=== PATIENT | female | born 2000 | race Caucasian/White ===

== ENCOUNTER 2020-07-08 19:09 | Emergency (ER) | payer OTHER ==
[~2020-07-08] VITALS: Ht 149.9 cm; Wt 83.9 kg
[2020-07-08 19:14] VITALS: BP 128/78
--- NOTE | 2020-07-08 19:18 | NUR ---
PT AMBULATED TO BED 07 VIA STEADY GAIT.
[2020-07-08 19:31] VITALS: BP 128/78
--- NOTE | 2020-07-08 19:31 | NUR ---
19 Y/O F, CAME IN TO ER WITH COMPLAINTS OF ABDOMINAL PAIN. DESCRIBES PAIN SHARP AND STABBING AND RADIATES FROM LOWER AB TO LLQ. REPORTS PAIN HAS BEEN FOR 4 DAYS AND IS NOT ALLEVIATED WITH TYLENOL. HAVING NORMAL BOWEL MOVEMENTS, DENIES N/V/D. NO PAST MEDICAL HX AND NKA. DENIES ANY INJURY OR ACCIDENT. VSS. POSITIONED FOR COMFORT, SIDERAIL UPx1.
[2020-07-08] MEDS ORDERED: KETOROLAC 60 MG/2 ML VIAL IM ONE (19:35)
--- NOTE | 2020-07-08 20:28 | NUR ---
Patient discharged with v/s stable. Written and verbal after care instructions given and explained. Patient alert, oriented and verbalized understanding of instructions. Ambulatory with steady gait. All questions addressed prior to discharge. ID band removed. Patient advised to follow up with PMD. Rx of MOTRIN AND NORCO given. Patient educated on indication of medication including possible reaction and side effects. Opportunity to ask questions provided and answered. PT STABLE REPORTS WILL FOLLOWUP WITH PRIMARY PROVIDER.
== END 2020-07-08 20:28 | disposition home or self-care (01) ==
LOC: MED 19:09
DX: R10.30 Lower abdominal pain, unspecified (principal)
CPT/HCPCS: 81002; 81025; 96372; 99283; J1885

== ENCOUNTER 2020-07-10 11:13 | Emergency (ER) | payer OTHER ==
[~2020-07-10] VITALS: Ht 149.9 cm; Wt 83.9 kg
[2020-07-10 11:42] VITALS: BP 116/76
--- NOTE | 2020-07-10 12:00 | NUR ---
19 YEAR OLD FEMALE COMPLAINS OF LOWER ABDOMINAL PAIN X 6 DAYS. PT STATES SHE HAS BEEN HAVING DIARRHEA AFTER TAKING LAXATIVE. PT AOX4, BREATHING EVEN AND UNLABORED, SKIN WARM AND DRY. BED IN LOWEST POSITION, LOCKED, BED RAIL UPX1. PMH - DENIES ALLERGIES - NKA
[2020-07-10 13:09] VITALS: BP 116/76
--- NOTE | 2020-07-10 13:09 | NUR ---
Patient discharged with v/s stable. Written and verbal after care instructions given and explained. Patient alert, oriented and verbalized understanding of instructions. Ambulatory with steady gait. All questions addressed prior to discharge. ID band removed. Patient advised to follow up with PMD.
== END 2020-07-10 13:09 | disposition home or self-care (01) ==
LOC: MED 11:13
DX: N83.202 Unspecified ovarian cyst, left side (principal); R19.7 Diarrhea, unspecified
CPT/HCPCS: 76856; 99284; Q0092

== ENCOUNTER 2020-11-03 12:33 | Emergency (ER) | payer OTHER ==
[~2020-11-03] VITALS: Ht 149.9 cm; Wt 84.9 kg
[2020-11-03 12:41] VITALS: BP 115/70
--- NOTE | 2020-11-03 12:47 | NUR ---
PT AMB TO BED 12.
[2020-11-03] MEDS ORDERED: DICYCLOMINE HCL LIQUID 20 MG, ALUMINUM HYD/MAG/SIMETHICONE 30 ML, LIDOCAINE VISCOUS 2% ... PO ONE ×3 (13:15)
[2020-11-03] MEDS ORDERED: DICYCLOMINE HCL LIQUID 10 MG/5 ML UDC ONE (13:28)
[2020-11-03] MEDS ORDERED: ALUMINUM HYD/MAG/SIMETHICONE 30 ML UDC ONE (13:28)
[2020-11-03] MEDS ORDERED: LIDOCAINE VISCOUS 2% 20 ML UDC ONE (13:28)
[2020-11-03 14:55] VITALS: BP 115/70
--- NOTE | 2020-11-03 14:55 | NUR ---
Patient discharged with v/s stable. Written and verbal after care instructions given and explained. Patient alert, oriented and verbalized understanding of instructions. Ambulatory with steady gait. All questions addressed prior to discharge. ID band removed. Patient advised to follow up with PMD. Rx of Bentyl 20mg, Omeprazole 20mg and Zofran 4mg given. Patient educated on indication of medication including possible reaction and side effects. Opportunity to ask questions provided and answered.
== END 2020-11-03 14:55 | disposition home or self-care (01) ==
LOC: MED 12:33
DX: R10.13 Epigastric pain (principal)
CPT/HCPCS: 81002; 81025; 99283

== ENCOUNTER 2022-08-26 12:48 | Inpatient (IN) | payer OTHER ==
[~2022-08-26] VITALS: Ht 154.9 cm; Wt 81.6 kg
[2022-08-26 12:56] VITALS: BP 101/76
[2022-08-26] MEDS ORDERED: NACL 0.9% 1,000 ML IV SCH (13:25)
[2022-08-26] MEDS ORDERED: cefTRIAXone 1,000 MG VIAL ONE (13:35)
[2022-08-26] MEDS ORDERED: DOPPLER MC ONE (13:36)
[2022-08-26 13:52] LABS: BASOPHILS % (AUTO) 0.3 % (0.0-2.0); HEMATOCRIT 33.2 % (36-48); HEMOGLOBIN 11.6 g/dL (12.0-16.0); LYMPHOCYTES # (AUTO) 0.6 K/uL (2.5-16.5); LYMPHOCYTES % (AUTO) 5.3 % (20.5-51.1); MEAN CORPUSCULAR HEMOGLOBIN 30 pg (27-31); MEAN CORPUSCULAR HGB CONC 35 g/dL (33-37); MEAN CORPUSCULAR VOLUME 86.3 fL (80-94); MONOCYTES # (AUTO) 0.8 K/uL (0.8-1.0); MONOCYTES % (AUTO) 6.3 % (1.7-9.3); NEUTROPHILS # (AUTO) 10.8 K/uL (1.8-7.7); NEUTROPHILS % (AUTO) 88.1 % (42.2-75.2); PLATELET COUNT (AUTO) 196 K/uL (140-450); RED BLOOD CELL COUNT(AUTO) 3.84 MIL/uL (4.20-5.40); RED CELL DISTRIBUTION WIDTH 13.9 % (11.6-13.7); WHITE BLOOD COUNT (AUTO) 12.3 K/uL (4.8-10.8)
[2022-08-26 13:56] LABS: APPEARANCE,URINE CLEAR (CLEAR); BILIRUBIN,URINE 1+ (NEGATIVE); BLOOD, URINE NEGATIVE (NEGATIVE); COLOR,URINE YELLOW (YELLOW); LEUKOCYTE ESTERASE ,URINE NEGATIVE (NEGATIVE); NITRITE, URINE NEGATIVE (NEGATIVE); PH,URINE 8.5 (5.0-9.0); UGLUCOSE NEGATIVE (NEGATIVE)
[2022-08-26 14:13] LABS: ALBUMIN 2.9 g/dL (3.4-5.0); ANION GAP 13.6 (8-16); CREATININE 0.7 mg/dL (0.6-1.3); POTASSIUM 3.6 mmol/L (3.5-5.1); TOTAL BILIRUBIN 0.5 mg/dL (0.0-1.0)
[2022-08-26 14:22] LABS: RBC,URINE NONE SEEN /HPF (0-5); TRICHOMONAS,URINE None Seen /HPF (None Seen); WBC,URINE 0-5 /HPF (0-5); YEAST,URINE None Seen /HPF (None Seen)
--- NOTE | 2022-08-26 14:51 | NUR ---
21 Y/O FEMALE BIB SELF C/O PELVIC PRESSURE, URINARY BURNING AND HESITANCY X3DAYS, NAUSEA X4 WEEKS. PT IS 19 WEEKS G1, DENIES ANY LOW BACK PAIN, FLANK PAIN, HEADACHE, SUBJECTIVE FEVERS. NKA PMH: DENIES
[2022-08-26] MEDS ORDERED: NACL 0.9% 1,000 ML IV ONE ×2 (14:55→17:15)
[2022-08-26] MEDS ORDERED: ACETAMINOPHEN EXTRA STRENGTH 500 MG TAB PO ONE (15:00)
[2022-08-26] MEDS ORDERED: ONDANSETRON 4 MG/2 ML VIAL IVP PRN (17:00)
--- NOTE | 2022-08-26 17:19 | NUR ---
NOTED PT BP DROPPED TO 84/42, ERMD MADE AWARE, PT STATES SLIGHT DIZZINESS, DENIES ANY BLURRING OF VISION, HEADACHE, ABD PAIN
--- NOTE | 2022-08-26 18:15 | NUR ---
US AT BEDSIDE
[2022-08-26] MEDS: NACL 0.9% 1,000 ML IV SCH (18:19)
--- NOTE | 2022-08-26 19:19 | NUR ---
Pt report given to GABE GRIMES. Transfer of care at this time.
--- NOTE | 2022-08-26 20:00 | NUR ---
pt is alert and oriented x 4. follow command. pt voided. 200. room air ambulatory.
[2022-08-27] MEDS: NACL 0.9% 1,000 ML IV SCH ×3 (01:00→15:25)
--- NOTE | 2022-08-27 07:20 | NUR ---
Received report from CORNELIO Ji. Assumed care at this time.
[2022-08-27 07:57] LABS: BASOPHILS % (AUTO) 0.3 % (0.0-2.0); EOSINOPHILS # (AUTO) 0.1 K/uL (0-0.4); EOSINOPHILS % (AUTO) 1.1 % (0.0-4.0); HEMATOCRIT 30.4 % (36-48); HEMOGLOBIN 10.8 g/dL (12.0-16.0); LYMPHOCYTES # (AUTO) 1.5 K/uL (2.5-16.5); LYMPHOCYTES % (AUTO) 16.8 % (20.5-51.1); MEAN CORPUSCULAR HEMOGLOBIN 31 pg (27-31); MEAN CORPUSCULAR HGB CONC 36 g/dL (33-37); MEAN CORPUSCULAR VOLUME 87.5 fL (80-94); MONOCYTES # (AUTO) 0.6 K/uL (0.8-1.0); MONOCYTES % (AUTO) 6.5 % (1.7-9.3); NEUTROPHILS # (AUTO) 6.5 K/uL (1.8-7.7); NEUTROPHILS % (AUTO) 75.3 % (42.2-75.2); PLATELET COUNT (AUTO) 186 K/uL (140-450); RED BLOOD CELL COUNT(AUTO) 3.48 MIL/uL (4.20-5.40); RED CELL DISTRIBUTION WIDTH 13.6 % (11.6-13.7); WHITE BLOOD COUNT (AUTO) 8.6 K/uL (4.8-10.8)
[2022-08-27 08:08] LABS: ALBUMIN 2.3 g/dL (3.4-5.0); ANION GAP 9.4 (8-16); CARBON DIOXIDE 25.2 mmol/L (21-32); CREATININE 0.5 mg/dL (0.6-1.3); POTASSIUM 3.6 mmol/L (3.5-5.1); TOTAL BILIRUBIN 0.3 mg/dL (0.0-1.0)
[2022-08-27] MEDS ORDERED: DOPPLER MC ONE (09:45)
--- NOTE | 2022-08-27 12:42 | NUR ---
Patient will be admitted to care of Dr. Walker. Admited to Med/Surg. Will go to room 212. Belongings list completed. Report to CORNELIO Pat.
[2022-08-27 17:29] VITALS: BP 115/62
[2022-08-28] MEDS: NACL 0.9% 1,000 ML IV SCH ×2 (00:50→09:16)
--- NOTE | 2022-08-28 06:38 | NUR ---
PATIENT HAS BEEN SCREENED AND CATEGORIZED LOW NUTRITION RISK. PATIENT WILL BE SEEN WITHIN 7 DAYS OF ADMISSION. 09/02/[address]
[2022-08-28 10:49] LABS: ANION GAP 12.1 (8-16); CARBON DIOXIDE 24.4 mmol/L (21-32); CREATININE 0.5 mg/dL (0.6-1.3); POTASSIUM 3.5 mmol/L (3.5-5.1)
[2022-08-28 11:22] LABS: BASOPHILS % (AUTO) 0.3 % (0.0-2.0); EOSINOPHILS # (AUTO) 0.1 K/uL (0-0.4); HEMATOCRIT 30.6 % (36-48); HEMOGLOBIN 10.7 g/dL (12.0-16.0); LYMPHOCYTES # (AUTO) 1.5 K/uL (2.5-16.5); LYMPHOCYTES % (AUTO) 19.9 % (20.5-51.1); MEAN CORPUSCULAR HEMOGLOBIN 31 pg (27-31); MEAN CORPUSCULAR HGB CONC 35 g/dL (33-37); MEAN CORPUSCULAR VOLUME 87.3 fL (80-94); MONOCYTES # (AUTO) 0.3 K/uL (0.8-1.0); MONOCYTES % (AUTO) 4.5 % (1.7-9.3); NEUTROPHILS # (AUTO) 5.4 K/uL (1.8-7.7); NEUTROPHILS % (AUTO) 74.3 % (42.2-75.2); PLATELET COUNT (AUTO) 198 K/uL (140-450); RED BLOOD CELL COUNT(AUTO) 3.51 MIL/uL (4.20-5.40); RED CELL DISTRIBUTION WIDTH 13.9 % (11.6-13.7); WHITE BLOOD COUNT (AUTO) 7.3 K/uL (4.8-10.8)
[2022-08-28] MEDS ORDERED: CEFP200T20 PO (12:57)
== END 2022-08-28 12:55 | disposition home or self-care (01) | DRG 566 ==
LOC: MED 12:48 → MTU 18:24 → MFCC 08-27 12:11
PROVIDERS: ADMIT Hospitalist; ATTEND Hospitalist
DX: O23.02 Infections of kidney in pregnancy, second trimester (principal); O98.812 Other maternal infectious and parasitic diseases complicating pregnancy, second trimester; Z20.822 Contact with and (suspected) exposure to COVID-19; N12 Tubulo-interstitial nephritis, not specified as acute or chronic; Z3A.19 19 weeks gestation of pregnancy
CPT/HCPCS: 36415; 76770; 76815; 80048; 80053; 81001; 83605; 83735; 85025; 87040; 87086; 96361; 96365; 99285; J0696; J2405; J7030; J7060; Q0092

== ENCOUNTER 2022-09-11 15:20 | Observation (INO) | payer OTHER ==
[~2022-09-11] VITALS: Ht 149.9 cm; Wt 95.3 kg
[~2022-09-11 15:20] MED LIST: CEFP200T20 PO
[2022-09-11] MEDS ORDERED: METO-485 PO (15:49)
[2022-09-11 16:18] LABS: BASOPHILS # (AUTO) 0.1 K/uL (0.00-0.22); BASOPHILS % (AUTO) 0.7 % (0.0-2.0); EOSINOPHILS # (AUTO) 0.1 K/uL (0-0.4); EOSINOPHILS % (AUTO) 0.8 % (0.0-4.0); HEMATOCRIT 34.5 % (36-48); LYMPHOCYTES # (AUTO) 1.7 K/uL (2.5-16.5); LYMPHOCYTES % (AUTO) 15.8 % (20.5-51.1); MEAN CORPUSCULAR HEMOGLOBIN 30 pg (27-31); MEAN CORPUSCULAR HGB CONC 35 g/dL (33-37); MEAN CORPUSCULAR VOLUME 87.1 fL (80-94); MONOCYTES # (AUTO) 0.6 K/uL (0.8-1.0); MONOCYTES % (AUTO) 5.7 % (1.7-9.3); NEUTROPHILS # (AUTO) 8.3 K/uL (1.8-7.7); PLATELET COUNT (AUTO) 270 K/uL (140-450); RED BLOOD CELL COUNT(AUTO) 3.96 MIL/uL (4.20-5.40); WHITE BLOOD COUNT (AUTO) 10.8 K/uL (4.8-10.8)
[2022-09-11 16:38] LABS: ALBUMIN 2.9 g/dL (3.4-5.0); ANION GAP 11.9 (8-16); CARBON DIOXIDE 28.9 mmol/L (21-32); CREATININE 0.5 mg/dL (0.6-1.3); POTASSIUM 3.8 mmol/L (3.5-5.1); TOTAL BILIRUBIN 0.3 mg/dL (0.0-1.0)
[2022-09-11 17:57] VITALS: BP 111/59
== END 2022-09-11 20:50 | disposition home or self-care (01) ==
LOC: OBSVTOIN 15:20 → MLD 15:20 → INTOOBSV 15:20
PROVIDERS: ADMIT Obstetrics & Gynecology; ATTEND Obstetrics & Gynecology
DX: O26.892 Other specified pregnancy related conditions, second trimester (principal); Z20.822 Contact with and (suspected) exposure to COVID-19; R10.9 Unspecified abdominal pain; Z3A.21 21 weeks gestation of pregnancy; V89.2XXA Person injured in unspecified motor-vehicle accident, traffic, initial encounter; Y93.89 Activity, other specified; Y92.89 Other specified places as the place of occurrence of the external cause
CPT/HCPCS: 36415; 76805; 80053; 85025; 85384; 87426; G0378; Q0092; 59025; 81000

== ENCOUNTER 2022-09-14 21:50 | Observation (INO) | payer OTHER ==
[~2022-09-14] VITALS: Ht 149.9 cm; Wt 86.2 kg
[~2022-09-14 21:50] MED LIST changes: +METO-485 PO
[2022-09-14] MEDS ORDERED: LOPERAMIDE 2 MG CAP PO PRN (22:30)
[2022-09-14] MEDS ORDERED: LACTATED RINGERS 1,000 ML IV SCH (22:30)
[2022-09-14 22:32] VITALS: BP 116/62
[2022-09-14] MEDS: ONDANSETRON 4 MG/2 ML VIAL IVP PRN (23:07)
[2022-09-14 23:20] LABS: ALBUMIN 2.8 g/dL (3.4-5.0); CREATININE 0.5 mg/dL (0.6-1.3); TOTAL BILIRUBIN 0.4 mg/dL (0.0-1.0)
[2022-09-14 23:26] LABS: ANION GAP 6.3 (8-16); CARBON DIOXIDE 29.4 mmol/L (21-32); POTASSIUM 3.7 mmol/L (3.5-5.1)
[2022-09-15] MEDS: ONDANSETRON 4 MG/2 ML VIAL IVP PRN (05:00)
== END 2022-09-15 08:19 | disposition home or self-care (01) ==
LOC: MLD 21:50
PROVIDERS: ADMIT Obstetrics & Gynecology; ATTEND Obstetrics & Gynecology
DX: O26.892 Other specified pregnancy related conditions, second trimester (principal); R10.9 Unspecified abdominal pain; Z3A.22 22 weeks gestation of pregnancy
CPT/HCPCS: 36415; 80053; 96361; 96374; 96376; G0378; J2405; J7120

== ENCOUNTER 2022-09-27 15:50 | Inpatient (IN) | payer OTHER ==
[~2022-09-27] VITALS: Ht 149.9 cm; Wt 88.0 kg
[2022-09-27] MEDS ORDERED: PNV91TAB8 PO (16:42)
[2022-09-27 17:27] VITALS: BP 113/59
[2022-09-27] MEDS ORDERED: INDOMETHACIN 25 MG CAP PO SCH (19:30)
[2022-09-27] MEDS: BETAMETH ACET/BETAMETH NA PH 30 MG/5 ML VIAL IM SCH (19:52)
[2022-09-27] MEDS: LACTATED RINGERS 1,000 ML IV SCH (19:57)
[2022-09-27] MEDS: ONDANSETRON 4 MG/2 ML VIAL IVP PRN (21:20)
[2022-09-27] MEDS ORDERED: NIFEdipine 10 MG CAPLF PO ONE (21:30)
[2022-09-28] MEDS ORDERED: NIFEdipine 10 MG CAPLF PO SCH
[2022-09-28] MEDS: LACTATED RINGERS 1,000 ML IV SCH ×3 (03:54→20:00)
[2022-09-28] MEDS: ONDANSETRON 4 MG/2 ML VIAL IVP PRN ×2 (04:03→20:00)
[2022-09-28] MEDS ORDERED: INDOMETHACIN 25 MG CAP PO SCH ×2 (08:15)
--- NOTE | 2022-09-28 09:11 | NUR ---
PATIENT HAS BEEN SCREENED AND CATEGORIZED LOW NUTRITION RISK. PATIENT WILL BE SEEN WITHIN 7 DAYS OF ADMISSION. 10/04/22 REVIEWED BY MARGARET RESENDEZ RD
[2022-09-28] MEDS: INDOMETHACIN 25 MG CAP PO SCH ×3 (13:40→21:30)
[2022-09-28] MEDS: BETAMETH ACET/BETAMETH NA PH 30 MG/5 ML VIAL IM SCH (19:53)
[2022-09-29] MEDS: INDOMETHACIN 25 MG CAP PO SCH ×6 (01:34→22:00)
[2022-09-29] MEDS: LACTATED RINGERS 1,000 ML IV SCH ×3 (04:25→20:12)
[2022-09-29] MEDS: ONDANSETRON 4 MG/2 ML VIAL IVP PRN ×2 (12:51→18:18)
[2022-09-29] MEDS: NIFEdipine 10 MG CAPLF PO SCH (18:22)
[2022-09-29] MEDS ORDERED: INDOMETHACIN 25 MG CAP PO SCH (20:00)
[2022-09-30] MEDS: INDOMETHACIN 25 MG CAP PO SCH ×3 (02:00→10:25)
[2022-09-30] MEDS ORDERED: MORPHINE SULFATE 2 MG/ML SYR IVP ONE (02:25)
[2022-09-30] MEDS ORDERED: MORPHINE SULFATE 4 MG/ML SYR ONE (02:26)
[2022-09-30] MEDS: LACTATED RINGERS 1,000 ML IV SCH (03:48)
[2022-09-30] MEDS: NIFEdipine 10 MG CAPLF PO SCH ×3 (06:10→11:57)
[2022-09-30] MEDS: ONDANSETRON 4 MG/2 ML VIAL IVP PRN (11:55)
[2022-09-30] MEDS ORDERED: NIFEdipine 10 MG CAPLF PO SCH ×2 (18:00)
== END 2022-09-30 13:15 | disposition home or self-care (01) | DRG 566 ==
LOC: MLD 15:50 → OBSVTOIN 19:27 → MLD 20:51 → MFCC 09-28 09:38
PROVIDERS: ADMIT Obstetrics & Gynecology; ATTEND Obstetrics & Gynecology
DX: O34.32 Maternal care for cervical incompetence, second trimester (principal); O60.02 Preterm labor without delivery, second trimester; O26.872 Cervical shortening, second trimester; Z20.822 Contact with and (suspected) exposure to COVID-19; Z3A.24 24 weeks gestation of pregnancy
CPT/HCPCS: 76805; 76817; J0702; J2270; J2405; Q0092

== ENCOUNTER 2022-11-06 12:45 | Inpatient (IN) | payer OTHER ==
[~2022-11-06] VITALS: Ht 149.9 cm; Wt 90.7 kg
[~2022-11-06 12:45] MED LIST changes: -CEFP200T20 PO; -METO-485 PO; +PNV91TAB8 PO
[2022-11-06] MEDS ORDERED: procardia (13:28)
[2022-11-06] MEDS ORDERED: BETAMETH ACET/BETAMETH NA PH 30 MG/5 ML VIAL IM SCH (13:30)
[2022-11-06 14:56] LABS: APPEARANCE,URINE CLEAR (CLEAR); BILIRUBIN,URINE NEGATIVE (NEGATIVE); BLOOD, URINE NEGATIVE (NEGATIVE); COLOR,URINE YELLOW (YELLOW); LEUKOCYTE ESTERASE ,URINE NEGATIVE (NEGATIVE); NITRITE, URINE NEGATIVE (NEGATIVE); UGLUCOSE NEGATIVE (NEGATIVE)
[2022-11-06 15:09] LABS: BASOPHILS % (AUTO) 0.2 % (0.0-2.0); EOSINOPHILS % (AUTO) 0.3 % (0.0-4.0); HEMATOCRIT 33.2 % (36-48); HEMOGLOBIN 11.3 g/dL (12.0-16.0); MEAN CORPUSCULAR HEMOGLOBIN 30 pg (27-31); MEAN CORPUSCULAR HGB CONC 34 g/dL (33-37); MEAN CORPUSCULAR VOLUME 87.5 fL (80-94); MONOCYTES # (AUTO) 0.8 K/uL (0.8-1.0); MONOCYTES % (AUTO) 5.6 % (1.7-9.3); NEUTROPHILS # (AUTO) 12.3 K/uL (1.8-7.7); NEUTROPHILS % (AUTO) 86.9 % (42.2-75.2); PLATELET COUNT (AUTO) 222 K/uL (140-450); RED CELL DISTRIBUTION WIDTH 12.9 % (11.6-13.7); WHITE BLOOD COUNT (AUTO) 14.1 K/uL (4.8-10.8)
[2022-11-06 15:25] LABS: ALBUMIN 3.2 g/dL (3.4-5.0); ANION GAP 13.3 (8-16); CARBON DIOXIDE 26.9 mmol/L (21-32); CREATININE 0.5 mg/dL (0.6-1.3); POTASSIUM 4.2 mmol/L (3.5-5.1); TOTAL BILIRUBIN 0.3 mg/dL (0.0-1.0)
--- NOTE | 2022-11-06 17:00 | NUR ---
PATIENT HAS BEEN SCREENED AND CATEGORIZED LOW NUTRITION RISK. PATIENT WILL BE SEEN WITHIN 7 DAYS OF ADMISSION. 11/13/22 REVIEWED BY MARGARET RESENDEZ RD
[2022-11-06] MEDS ORDERED: MAG SULF 2000 MG/WATER PREMIX 50 ML IV ONE (17:17)
[2022-11-06] MEDS ORDERED: MAG SULF 20 GM/H2O PREMIX DRIP 500 ML IV SCH (17:30)
[2022-11-06] MEDS ORDERED: MAG SULF 2000 MG/WATER PREMIX 100 ML IV ONE (17:30)
[2022-11-06] MEDS ORDERED: MAG SULF 2000 MG/WATER PREMIX 100 ML IV SCH (17:40)
[2022-11-06 17:57] VITALS: BP 80/53
[2022-11-06] MEDS: MAG SULF 20 GM/H2O PREMIX DRIP 500 ML IV PRN (18:23)
[2022-11-07] MEDS: LACTATED RINGERS 1,000 ML IV SCH ×3 (01:54→19:03)
[2022-11-07] MEDS ORDERED: ACETAMINOPHEN 325 MG TAB PO PRN (01:55)
[2022-11-07] MEDS: MAG SULF 20 GM/H2O PREMIX DRIP 500 ML IV PRN (09:50)
[2022-11-07] MEDS ORDERED: BETAMETH ACET/BETAMETH NA PH 30 MG/5 ML VIAL IM ONE ×2 (13:37→14:00)
[2022-11-07] MEDS ORDERED: NIFEdipine 10 MG CAPLF PO SCH (20:35)
[2022-11-07] MEDS ORDERED: NIFEdipine 10 MG CAPLF ONE (20:54)
== END 2022-11-07 22:15 | disposition home or self-care (01) | DRG 833 ==
LOC: MFCC 12:45 → OBSVTOIN 21:51
PROVIDERS: ADMIT Obstetrics & Gynecology; ATTEND Obstetrics & Gynecology
DX: O60.03 Preterm labor without delivery, third trimester (principal); Z3A.29 29 weeks gestation of pregnancy; Z20.822 Contact with and (suspected) exposure to COVID-19
CPT/HCPCS: 36415; 76805; 76817; 80053; 81003; 83735; 85025; 86592; 86886; 86900; 86901; J0702; J3475; Q0092

== ENCOUNTER 2023-01-10 00:01 | Inpatient (IN) | payer OTHER ==
[~2023-01-10] VITALS: Ht 149.9 cm; Wt 98.4 kg
[~2023-01-10 00:01] MED LIST changes: +procardia
[2023-01-10] MEDS ORDERED: ONDANSETRON 4 MG/2 ML VIAL IVP PRN (00:40)
[2023-01-10] MEDS ORDERED: MORPHINE SULFATE 5 MG/ML VIAL IVP PRN (00:40)
[2023-01-10] MEDS ORDERED: OXYTOCIN 10 UNITS/ML VIAL IM SCH (00:40)
[2023-01-10] MEDS ORDERED: CARBOPROST 250 MCG/ML AMP IM PRN (00:40)
[2023-01-10] MEDS ORDERED: OXYTOCIN 20 UNITS in LACTATED RINGERS 1,000 ML IV SCH (00:40)
[2023-01-10] MEDS ORDERED: METHYLERGONOVINE 0.2 MG/ML AMP IM PRN (00:40)
[2023-01-10 01:28] LABS: BASOPHILS % (AUTO) 0.3 % (0.0-2.0); EOSINOPHILS # (AUTO) 0.1 K/uL (0-0.4); EOSINOPHILS % (AUTO) 0.9 % (0.0-4.0); HEMATOCRIT 32.7 % (36-48); HEMOGLOBIN 11.1 g/dL (12.0-16.0); LYMPHOCYTES # (AUTO) 1.7 K/uL (2.5-16.5); MEAN CORPUSCULAR HEMOGLOBIN 28 pg (27-31); MEAN CORPUSCULAR HGB CONC 34 g/dL (33-37); MEAN CORPUSCULAR VOLUME 83.9 fL (80-94); MONOCYTES # (AUTO) 0.8 K/uL (0.8-1.0); NEUTROPHILS # (AUTO) 8.2 K/uL (1.8-7.7); NEUTROPHILS % (AUTO) 75.8 % (42.2-75.2); PLATELET COUNT (AUTO) 264 K/uL (140-450); RED CELL DISTRIBUTION WIDTH 13.8 % (11.6-13.7); WHITE BLOOD COUNT (AUTO) 10.8 K/uL (4.8-10.8)
[2023-01-10 01:32] LABS: APPEARANCE,URINE CLEAR (CLEAR); BILIRUBIN,URINE NEGATIVE (NEGATIVE); BLOOD, URINE NEGATIVE (NEGATIVE); COLOR,URINE YELLOW (YELLOW); LEUKOCYTE ESTERASE ,URINE NEGATIVE (NEGATIVE); NITRITE, URINE NEGATIVE (NEGATIVE); UGLUCOSE NEGATIVE (NEGATIVE)
[2023-01-10 02:15] LABS: PROTHROMBIN TIME 9.3 secs (10.8-13.4)
[2023-01-10 02:23] LABS: POTASSIUM 4.5 mmol/L (3.5-5.1)
[2023-01-10 02:24] LABS: ALBUMIN 2.7 g/dL (3.4-5.0); ANION GAP 11.3 (8-16); CARBON DIOXIDE 26.2 mmol/L (21-32); CREATININE 0.7 mg/dL (0.6-1.3); TOTAL BILIRUBIN 0.3 mg/dL (0.0-1.0)
[2023-01-10] MEDS: LACTATED RINGERS 1,000 ML IV SCH ×3 (02:56→16:33)
[2023-01-10] MEDS: MISOPROSTOL 25 MCG TAB VG PRN ×3 (06:26→21:01)
--- NOTE | 2023-01-10 09:12 | NUR ---
PATIENT HAS BEEN SCREENED AND CATEGORIZED LOW NUTRITION RISK. PATIENT WILL BE SEEN WITHIN 7 DAYS OF ADMISSION. 01/17/23 REVIEWED BY MARGARET RESENDEZ RD
[2023-01-11] MEDS: LACTATED RINGERS 1,000 ML IV SCH ×6 (01:10→20:56)
[2023-01-11 07:08] LABS: HEPATITIS B SURFACE ANTIGEN Negative (Negative)
[2023-01-11] MEDS ORDERED: ROPIVACAINE 0.2%/NS PREMIX 200 ML EPI ONE (12:49)
[2023-01-11] MEDS ORDERED: OXYTOCIN 20 UNITS in LACTATED RINGERS 1,000 ML IV SCH (14:25)
[2023-01-11] MEDS ORDERED: OXYTOCIN 20 UNITS/LR PREMIX 1,000 ML IV ONE (14:26)
[2023-01-12] MEDS ORDERED: ROPIVACAINE 0.2%/NS PREMIX 200 ML EPI ONE ×2 (03:42→13:31)
[2023-01-12] MEDS: LACTATED RINGERS 1,000 ML IV SCH ×2 (04:58→12:46)
[2023-01-12] MEDS ORDERED: MORPHINE SULFATE 10 MG/ML VIAL ONE ×2 (07:36→13:38)
[2023-01-12] MEDS ORDERED: OXYTOCIN 20 UNITS/LR PREMIX 1,000 ML IV ONE (16:08)
[2023-01-12] MEDS ORDERED: METHYLERGONOVINE 0.2 MG TAB PO PRN (20:00)
[2023-01-12] MEDS ORDERED: BENZOCAINE/MENTHOL 20%-0.5% 60 GM CAN TP PRN (20:00)
[2023-01-12] MEDS ORDERED: METHYLERGONOVINE 0.2 MG/ML AMP IM PRN (20:00)
[2023-01-12] MEDS ORDERED: OXYTOCIN 10 UNITS/ML VIAL IM PRN (20:00)
[2023-01-12] MEDS ORDERED: MEASLES, MUMPS, AND RUBELLA 1 VIAL SQVAC ONE (20:00)
[2023-01-12] MEDS: IBUPROFEN 800 MG TAB PO PRN (23:21)
[2023-01-13 06:10] LABS: HEMATOCRIT 25.8 % (36-48); HEMOGLOBIN 8.8 g/dL (12.0-16.0)
[2023-01-13] MEDS: IBUPROFEN 800 MG TAB PO PRN (14:19)
[2023-01-14] MEDS: IBUPROFEN 800 MG TAB PO PRN (09:26)
== END 2023-01-14 18:06 | disposition home or self-care (01) | DRG 807 ==
LOC: MLD 00:01 → MFCC 01-12 19:58
PROVIDERS: ADMIT Obstetrics & Gynecology; ATTEND Obstetrics & Gynecology
PROC: 10D07Z6 Extraction of Products of Conception, Vacuum, Via Natural or Artificial Opening (ICD-10-PCS; principal; 2023-01-12)
PROC: 0KQM0ZZ Repair Perineum Muscle, Open Approach (ICD-10-PCS; 2023-01-12)
PROC: 3E0R3BZ Introduction of Anesthetic Agent into Spinal Canal, Percutaneous Approach (ICD-10-PCS; 2023-01-12)
PROC: 00HU33Z Insertion of Infusion Device into Spinal Canal, Percutaneous Approach (ICD-10-PCS; 2023-01-12)
DX: O70.1 Second degree perineal laceration during delivery (principal); Z37.0 Single live birth; Z20.822 Contact with and (suspected) exposure to COVID-19; Z3A.39 39 weeks gestation of pregnancy
CPT/HCPCS: 36415; 51702; 59200; 76805; 80053; 81003; 85018; 85025; 85610; 85730; 86592; 86762; 86886; 86900; 86901; 87340; J2270; J2405; J2590; J2795; Q0092

== ENCOUNTER 2023-03-19 18:25 | Inpatient (IN) | payer OTHER ==
[~2023-03-19] VITALS: Ht 149.9 cm; Wt 94.8 kg
[2023-03-19 00:55] VITALS: BP 99/58; PULSE 63; RESP 18; TEMP 97.6; O2SAT 96
[~2023-03-19 18:25] MED LIST changes: -procardia
[2023-03-19 18:54] VITALS: BP 116/74; PULSE 84; RESP 20; TEMP 98
--- NOTE | 2023-03-19 19:30 | NUR ---
URINE SAMPLE COLLECTED, NEGATIVE PREG TEST. SAMPLE TAKEN TO LAB FOR ANALYSIS.
[2023-03-19 19:42] LABS: APPEARANCE,URINE CLEAR (CLEAR); BILIRUBIN,URINE 2+ (NEGATIVE); BLOOD, URINE NEGATIVE (NEGATIVE); COLOR,URINE ORANGE (YELLOW); LEUKOCYTE ESTERASE ,URINE NEGATIVE (NEGATIVE); NITRITE, URINE NEGATIVE (NEGATIVE); UGLUCOSE NEGATIVE (NEGATIVE)
--- NOTE | 2023-03-19 20:18 | NUR ---
PT TO BED #1
[2023-03-19] MEDS ORDERED: KETOROLAC 30 MG/ML VIAL IVP ONE (20:30)
[2023-03-19] MEDS ORDERED: NACL 0.9% 1,000 ML IV ONE ×2 (20:30→21:50)
[2023-03-19 20:32] LABS: BASOPHILS % (AUTO) 0.3 % (0.0-2.0); EOSINOPHILS % (AUTO) 0.4 % (0.0-4.0); HEMATOCRIT 36.4 % (36-48); HEMOGLOBIN 12.3 g/dL (12.0-16.0); LYMPHOCYTES # (AUTO) 1.1 K/uL (2.5-16.5); LYMPHOCYTES % (AUTO) 10.6 % (20.5-51.1); MEAN CORPUSCULAR HEMOGLOBIN 27 pg (27-31); MEAN CORPUSCULAR HGB CONC 34 g/dL (33-37); MEAN CORPUSCULAR VOLUME 79.9 fL (80-94); MONOCYTES # (AUTO) 0.6 K/uL (0.8-1.0); MONOCYTES % (AUTO) 5.9 % (1.7-9.3); NEUTROPHILS # (AUTO) 8.8 K/uL (1.8-7.7); NEUTROPHILS % (AUTO) 82.8 % (42.2-75.2); PLATELET COUNT (AUTO) 299 K/uL (140-450); RED BLOOD CELL COUNT(AUTO) 4.55 MIL/uL (4.20-5.40); WHITE BLOOD COUNT (AUTO) 10.6 K/uL (4.8-10.8)
[2023-03-19] MEDS ORDERED: ONDANSETRON 4 MG/2 ML VIAL IVP ONE (20:40)
[2023-03-19 20:57] LABS: ANION GAP 14.1 (8-16); CARBON DIOXIDE 28.6 mmol/L (21-32); CREATININE 0.9 mg/dL (0.6-1.3); POTASSIUM 3.7 mmol/L (3.5-5.1)
[2023-03-19 22:15] LABS: CHOL/HDL RATIO 1.9 (1-4.5)
[2023-03-20] MEDS ORDERED: ZOLPIDEM 5 MG TAB PO PRN
[2023-03-20] MEDS ORDERED: guaiFENesin DM 200/20 MG-10 ML 10 ML UDC PO PRN
[2023-03-20] MEDS ORDERED: DOCUSATE SODIUM 100 MG GELCAP PO PRN
[2023-03-20 00:29] LABS: PROTHROMBIN TIME 10.4 secs (10.8-13.4)
[2023-03-20 00:31] LABS: BARBITURATE, URINE NEGATIVE ng/ml (NEG <=200)
[2023-03-20 00:32] LABS: BENZODIAZEPINE, URINE NEGATIVE ng/mL (NEG <=200); CANNABINOID, URINE NEGATIVE ng/mL (NEG <=50); COCAINE, URINE NEGATIVE ng/mL (NEG <=300); OPIATE, URINE NEGATIVE ng/mL (NEG <=2000); PHENCYCLIDINE SCREEN,URINE NEGATIVE ng/mL (NEG <=25)
--- NOTE | 2023-03-20 00:45 | NUR ---
Patient will be admitted to care of HELEN FARMER. Admited to TELEMETRY. Will go to room 105A. Belongings list completed. Report to BIANKA GRIMES.
[2023-03-20 00:55] VITALS: PULSE 94
--- NOTE | 2023-03-20 01:00 | NUR ---
RECEIVED REPORT FROM ER NURSE CÉSAR FOR CONTINUITY OF CARE. PATIENT IS A&O X4. PATIENT IS ON ROOM AIR BREATHING IS NORMAL WITH SYMMETRICAL RISE AND FALL OF CHEST. IV IS A 20G RAC, RUNNING NS 150 ML. PATIENT WAS ABLE TO AMBULATE TO BED FROM [facility]. PATIENT IS SITTING IN BED WITH AT BEDSIDE. WILL CONTINUE TO OBSERVE PATIENT.
[2023-03-20] MEDS: NACL 0.9% 1,000 ML IV SCH ×4 (01:21→22:38)
[2023-03-20] MEDS: HYDROcodone/APAP 7.5/325 MG 1 TAB PO PRN ×2 (02:41→15:02)
[2023-03-20 04:00] VITALS: BP 98/57; PULSE 70; PULSE 72; RESP 18; TEMP 97.6; O2SAT 98
[2023-03-20] MEDS ORDERED: MORPHINE SULFATE 2 MG/ML SYR IVP SCH (04:00)
[2023-03-20] MEDS ORDERED: MORPHINE SULFATE 2 MG/ML SYR ONE (04:02)
--- NOTE | 2023-03-20 04:27 | NUR ---
PATIENT COMPLAINED OF PAIN. CHECKED VITALS AND CHART; MEDICATED PATIENT WITH NORCO AT 0241. PATIENT'S PAIN CONTINUED TO GET WORSE. CORNELIO GUSTAFSON GAVE PATIENT ICE PACKS AND MESSAGED DR. CERVANTES AT 0312. ICE PACKS WERE NOT EFFECTIVE. DR. CERVANTES CALLED AT 0330 AND ASKED ABOUT PATIENT'S CONDITION. INFORMED MD THAT PATIENT WAS CRYING IN PAIN STATING 10/10 AND THAT THE NORCO WAS NOT EFFECTIVE. DR. CERVANTES ASKED WHEN THE NORCO WAS GIVEN, I TOLD THE TIME, HE SAID TO GIVE IT ANOTHER 30 MINUTES, THEN WE'LL SEE ABOUT MORPHINE. CALLED BACK AT 0350 AND REQUESTED MORPHINE FOR PATIENT. AUTHORIZED ONE TIME DOSE OF 2MG MORPHINE AND KUB X-RAY STAT. CHARGE NURSE JOSE PUT ORDERS IN; I PULLED MEDICATION AND ADMINISTERED TO PATIENT AT 0406. DR. CERVANTES MESSAGED ASKING ABOUT KUB AND HOW PATIENT IS, INFORMED HIM THAT KUB WAS JUST DONE AND PATIENT STATES MORPHINE HELPED A LITTLE BIT, BUT PAIN WAS STILL 8/10. MESSAGED TO LET HIM KNOW WHEN KUB RESULTS WERE IN. PATIENT IS LYING SUPINE ON HER RIGHT SIDE; WILL CONTINUE TO OBSERVE PATIENT.
[2023-03-20 07:01] LABS: ALBUMIN 3.4 g/dL (3.4-5.0); ANION GAP 12.8 (8-16); CARBON DIOXIDE 27.7 mmol/L (21-32); CREATININE 0.7 mg/dL (0.6-1.3); POTASSIUM 4.5 mmol/L (3.5-5.1); TOTAL BILIRUBIN 2.6 mg/dL (0.0-1.0)
[2023-03-20 07:05] LABS: BASOPHILS % (AUTO) 0.2 % (0.0-2.0); EOSINOPHILS % (AUTO) 0.1 % (0.0-4.0); HEMATOCRIT 32.7 % (36-48); HEMOGLOBIN 11.1 g/dL (12.0-16.0); LYMPHOCYTES # (AUTO) 0.7 K/uL (2.5-16.5); LYMPHOCYTES % (AUTO) 5.4 % (20.5-51.1); MEAN CORPUSCULAR HEMOGLOBIN 27 pg (27-31); MEAN CORPUSCULAR HGB CONC 34 g/dL (33-37); MEAN CORPUSCULAR VOLUME 78.2 fL (80-94); MONOCYTES # (AUTO) 0.6 K/uL (0.8-1.0); MONOCYTES % (AUTO) 5.1 % (1.7-9.3); NEUTROPHILS # (AUTO) 10.7 K/uL (1.8-7.7); NEUTROPHILS % (AUTO) 89.2 % (42.2-75.2); PLATELET COUNT (AUTO) 268 K/uL (140-450); RED BLOOD CELL COUNT(AUTO) 4.18 MIL/uL (4.20-5.40); RED CELL DISTRIBUTION WIDTH 14.4 % (11.6-13.7)
--- NOTE | 2023-03-20 07:25 | NUR ---
ENDORSE TO DAY SHIFT NURSE ADZE FOR CONTINUITY OF CARE. PATIENT IS STABLE.
[2023-03-20] MEDS: ONDANSETRON 4 MG/2 ML VIAL IM/IVP PRN ×3 (07:49→19:50)
[2023-03-20] MEDS: KETOROLAC 30 MG/ML VIAL IVP PRN ×2 (07:50→19:49)
[2023-03-20 08:00] VITALS: BP 109/62; PULSE 72; PULSE 95; RESP 18; TEMP 98; O2SAT 99
--- NOTE | 2023-03-20 08:00 | NUR ---
Received patient in bed, complaining of severe abdominal pain, MD made aware that patient states norco is not working for her pain and she needs stronger pain meds. MD ordered Toradol noted and carried out. Plan of care discussed with patient. Verbalized understanding.
[2023-03-20] MEDS: MORPHINE SULFATE 2 MG/ML SYR IVP PRN ×5 (08:36→22:32)
--- NOTE | 2023-03-20 08:49 | NUR ---
PATIENT HAS BEEN SCREENED AND CATEGORIZED LOW NUTRITION RISK. PATIENT WILL BE SEEN WITHIN 7 DAYS OF ADMISSION. 03/26/[address]
[2023-03-20] MEDS: PANTOPRAZOLE 40 MG TABEC PO SCH (09:00)
--- NOTE | 2023-03-20 15:02 | NUR ---
MEDICATED PT WITH PRN NORCO FOR BREAKTHROUGH PAIN.
[2023-03-20 16:00] VITALS: BP 109/73; PULSE 74; RESP 18; TEMP 98.7; O2SAT 99
[2023-03-20] MEDS: CYCLOBENZAPRINE 10 MG TAB PO SCH (17:36)
--- NOTE | 2023-03-20 18:16 | NUR ---
Patient remains stable. Medicated multiple times for pain and reassessed with some relief. All needs anticipated and met. Will continue plan of care.
--- NOTE | 2023-03-20 19:49 | NUR ---
PT COMPLAINTS OF ABDOMINAL PAIN 03/02, PAIN MEDICATION TORADOL ADMINISTERED ORDER.
--- NOTE | 2023-03-20 19:50 | NUR ---
PT COMPLAINTS OF NAUSEA, ZOFRAN ADMINISTERED ORDER.
[2023-03-20 20:00] VITALS: BP 100/53; PULSE 67; RESP 18; TEMP 98.1; O2SAT 99
--- NOTE | 2023-03-20 20:49 | NUR ---
REASSESSMENT OF PAIN. PT IS ASLEEP, NO FACIAL GRIMACING.
[2023-03-21] MEDS: NACL 0.9% 1,000 ML IV SCH ×4 (02:40→23:37)
[2023-03-21] MEDS: MORPHINE SULFATE 2 MG/ML SYR IVP PRN ×5 (03:00→21:24)
--- NOTE | 2023-03-21 03:00 | NUR ---
PT COMPLAINTS OF ABDOMINAL PAIN /, MORPHINE ADMINISTERED ORDER.
[2023-03-21 04:00] VITALS: BP 107/55; PULSE 86; RESP 18; TEMP 99; O2SAT 94
[2023-03-21] MEDS: KETOROLAC 30 MG/ML VIAL IVP PRN (05:28)
--- NOTE | 2023-03-21 07:06 | NUR ---
receive the patient from the manager utility rn in rm 105A aox4 with admitting diagnosis of pancreatitis .will continue to monitor
[2023-03-21 08:00] VITALS: BP 106/63; PULSE 103; RESP 20; TEMP 98.6; O2SAT 94
[2023-03-21 08:01] VITALS: PULSE 62; RESP 20; O2SAT 100
[2023-03-21 08:26] LABS: HEMATOCRIT 36.8 % (36-48); HEMOGLOBIN 12.3 g/dL (12.0-16.0); MEAN CORPUSCULAR HEMOGLOBIN 27 pg (27-31); MEAN CORPUSCULAR HGB CONC 33 g/dL (33-37); MEAN CORPUSCULAR VOLUME 79.7 fL (80-94); PLATELET COUNT (AUTO) 257 K/uL (140-450); RED BLOOD CELL COUNT(AUTO) 4.62 MIL/uL (4.20-5.40); RED CELL DISTRIBUTION WIDTH 14.2 % (11.6-13.7); WHITE BLOOD COUNT (AUTO) 12.5 K/uL (4.8-10.8)
[2023-03-21] MEDS: PANTOPRAZOLE 40 MG TABEC PO SCH (08:33)
[2023-03-21 08:45] LABS: ALBUMIN 2.9 g/dL (3.4-5.0); ANION GAP 17.2 (8-16); CARBON DIOXIDE 20.2 mmol/L (21-32); CREATININE 0.9 mg/dL (0.6-1.3); POTASSIUM 3.4 mmol/L (3.5-5.1); TOTAL BILIRUBIN 1.2 mg/dL (0.0-1.0)
[2023-03-21 08:49] LABS: BASOPHILS % (MANUAL) 0 % (0-2); EOSINOPHILS % (MANUAL) 0 % (0-4); LYMPHOCYTES % (MANUAL) 2 % (20-46); METAMYELOCYTES % 0 % (0-0); MONOCYTES % (MANUAL) 3 % (5-12); MYELOCYTES % 0 % (0-0); PROMYELOCYTES % 0 % (0-0)
[2023-03-21 08:50] LABS: BLASTS, MANUAL % 0 % (0-0); OTHER CELLS,MANUAL % 0 (0-0)
--- NOTE | 2023-03-21 11:01 | NUR ---
patient went for computed tomography of the abdomen with out contrast . tolerated the procedure
[2023-03-21] MEDS: POTASSIUM CHLORIDE 10 MEQ TABER PO PRN (11:43)
--- NOTE | 2023-03-21 11:45 | NUR ---
patient was pick for ct of abdomen/pelvis woth out contrast .tolerated the procedure
--- NOTE | 2023-03-21 12:24 | NUR ---
DC PLANNING A 22 YO FEMALE PATIENT AWAKE,ALERT WITH NO PAST MEDICAL HX ADMITTED FOR INTRACTABLE ABDOMINAL PAIN WITH ASSOCIATED NAUSEA AND VOMITING.HAS A 2 MONTH OLD BABY AND .LIPASE LEVEL 11,165.GB US SHOWS FATTY LIVER.ON CEFTRIAXONE.PAIN CONTROL MEDS: TORADOL AND MSO4.DIES ADVANCED TOLERATED.DC PLAN-DC HOME WHEN PATIENT CONDITION IMPROVES.CM TO FOLLOW.
--- NOTE | 2023-03-21 14:21 | NUR ---
[place] PRIMARY THERAPIST conducted this discharge planning assessment and addressed history of alcohol dependency. Pt. denied drinking stating she stopped. She has a 2 month old baby at home and is . Pt. denied having a problem and refused any resources PRIMARY THERAPIST tried to give her. PRIMARY THERAPIST is consulting with CM Milk Inspector.
--- NOTE | 2023-03-21 14:54 | NUR ---
md made aware of the result of the ct abdomen/pelvis with out contrast
--- NOTE | 2023-03-21 15:17 | NUR ---
HIDA scan was order by Md drake
[2023-03-21] MEDS: LIDOCAINE 5% 1 EA PATCH TP SCH (15:42)
[2023-03-21 16:00] VITALS: BP 123/67; PULSE 160; RESP 20; TEMP 100.6; O2SAT 94
[2023-03-21] MEDS: CYCLOBENZAPRINE 10 MG TAB PO SCH (16:26)
--- NOTE | 2023-03-21 19:15 | NUR ---
will endorse to assistant casino shift manager rn for continuity of care
--- NOTE | 2023-03-21 19:30 | NUR ---
RECEIVED REPORT FROM DAY SHIFT NURSE RUSS FOR CONTINUITY OF CARE. PATIENT IS A&O X4. PATIENT IS ON ROOM AIR; BREATHING IS NORMAL WITH SYMMETRICAL RISE AND FALL OF CHEST. IV IS A 20G RFA; RUNNING NS 150. PATIENT IS SITTING UP IN BED WITH AT BEDSIDE. BED IS IN LOWEST POSITION, WHEELS LOCKED, CALL LIGHT IN PLACE. WILL CONTINUE TO OBSERVE PATIENT.
[2023-03-21 20:00] VITALS: BP 105/65; PULSE 83; RESP 18; TEMP 98.3; O2SAT 98
--- NOTE | 2023-03-21 21:30 | NUR ---
PATIENT WAS COMPLAINING OF PAIN 9/. CHECKED PATIENT'S VITALS, BP WAS 111/54, HR WAS 81. CHECKED CHART, MORPHINE 2MG WAS APPROPRIATE BASED ON PATIENT'S STATED RATING ON PAIN SCALE. MEDICATION ADMINISTERED SUCCESSFULLY. WILL CONTINUE TO OBSERVE PATIENT.
--- NOTE | 2023-03-21 22:30 | NUR ---
REASSESSED PATIENT'S PAIN. PATIENT WAS SLEEPING. MEDICATION WAS EFFECTIVE. WILL CONTINUE TO OBSERVE PATIENT.
[2023-03-22] MEDS ORDERED: PIPERACILLIN/TAZOBACTAM 3.375 GM VIAL IV ONE ×2 (00:16→05:48)
[2023-03-22] MEDS: PIPERACILLIN/TAZOBACTAM 3.375 GM in DEXTROSE 5% 50 ML IV SCH ×5 (00:26→23:52)
--- NOTE | 2023-03-22 00:37 | NUR ---
ADMINISTERED IVPB ZOSYN TO PATIENT. MEDICATION STARTED SUCCESSFULLY WITHOUT ANY ISSUES WITH IV. PATIENT IS SLEEPING. WILL CONTINUE TO OBSERVE PATIENT.
[2023-03-22] MEDS: MORPHINE SULFATE 2 MG/ML SYR IVP PRN ×4 (01:27→22:26)
--- NOTE | 2023-03-22 01:32 | NUR ---
PATIENT REQUESTED PAIN MEDICATION FOR 10 PAIN. CHECKED PATIENT'S VITALS (106/62 AND HR 150). CHECKED CHART AND INFORMED PATIENT SHE WAS A FEW MINUTES TO EARLY, BUT HER VITAS WERE APPROPRIATE TO ADMINISTER, SO I WOULD GET THE MEDICATION READY FOR HER. SUCCESSFULLY ADMINISTERED MEDICATION TO PATIENT AT APPROPRIATE TIME (0127). PATIENT THANKED ME, AND IS CURRENTLY LYING IN BED TRYING TO GO BACK TO SLEEP. BREATHING IS NORMAL WITH SYMMETRICAL RISE AND FALL OF CHEST, IV IS RUNNING NS. WILL CONTINUE TO OBSERVE PATIENT.
--- NOTE | 2023-03-22 02:37 | NUR ---
REASSESSED PATIENT'S PAIN. PATIENT IS SLEEPING; MEDICATION WAS EFFECTIVE IN REDUCING PAIN. WILL CONTINUE TO OBSERVE PATIENT.
[2023-03-22] MEDS: NACL 0.9% 1,000 ML IV SCH ×4 (05:20→23:52)
--- NOTE | 2023-03-22 05:35 | NUR ---
PATIENT REQUESTED PAIN MEDICATION FOR 10/10 PAIN. CHECKED PATIENT'S VITALS (BP 116/75, HR 150) AND CHART; MORPHINE WAS APPROPRIATE TO ADMINISTER. ADMINISTRATION SUCCESSFUL WITH NO ISSUE WITH IV. WILL CONTINUE TO OBSERVE PATIENT.
[2023-03-22 06:21] LABS: BASOPHILS % (AUTO) 0.1 % (0.0-2.0); HEMATOCRIT 38.1 % (36-48); HEMOGLOBIN 12.4 g/dL (12.0-16.0); LYMPHOCYTES # (AUTO) 1.2 K/uL (2.5-16.5); LYMPHOCYTES % (AUTO) 8.1 % (20.5-51.1); MEAN CORPUSCULAR HEMOGLOBIN 26 pg (27-31); MEAN CORPUSCULAR HGB CONC 33 g/dL (33-37); MEAN CORPUSCULAR VOLUME 80.9 fL (80-94); MONOCYTES # (AUTO) 0.8 K/uL (0.8-1.0); MONOCYTES % (AUTO) 5.5 % (1.7-9.3); NEUTROPHILS # (AUTO) 12.7 K/uL (1.8-7.7); NEUTROPHILS % (AUTO) 86.3 % (42.2-75.2); PLATELET COUNT (AUTO) 238 K/uL (140-450); RED BLOOD CELL COUNT(AUTO) 4.71 MIL/uL (4.20-5.40); RED CELL DISTRIBUTION WIDTH 14.5 % (11.6-13.7); WHITE BLOOD COUNT (AUTO) 14.7 K/uL (4.8-10.8)
--- NOTE | 2023-03-22 06:35 | NUR ---
WENT TO ROOM TO REASSESS PATIENT'S PAIN. PATIENT WAS SLEEPING; MEDICATION WAS EFFECTIVE. IV WAS RUNNING; BREATHING WAS NORMAL WITH SYMMETRICAL RISE AND FALL OF CHEST. WILL CONTINUE TO OBSERVE PATIENT.
[2023-03-22 06:38] LABS: ALBUMIN 2.2 g/dL (3.4-5.0); ANION GAP 12.4 (8-16); CARBON DIOXIDE 23.3 mmol/L (21-32); CREATININE 0.8 mg/dL (0.6-1.3); POTASSIUM 3.7 mmol/L (3.5-5.1)
[2023-03-22 08:00] VITALS: BP 107/67; PULSE 112; RESP 18; TEMP 99; O2SAT 98
[2023-03-22] MEDS: PANTOPRAZOLE 40 MG TABEC PO SCH (09:00)
[2023-03-22] MEDS: KETOROLAC 30 MG/ML VIAL IVP PRN (10:49)
[2023-03-22] MEDS: LIDOCAINE 5% 1 EA PATCH TP SCH (10:50)
--- NOTE | 2023-03-22 13:40 | NUR ---
patient to nuclear med for HIDA Scan. stable at this time.
[2023-03-22] MEDS: CYCLOBENZAPRINE 10 MG TAB PO SCH (16:24)
--- NOTE | 2023-03-22 16:25 | NUR ---
patient back from [facility] med. stable at this time. transferred to room 113. nuclear precaution maintained.
[2023-03-22] MEDS: ACETAMINOPHEN 325 MG TAB PO PRN (16:42)
--- NOTE | 2023-03-22 16:45 | NUR ---
patient has temp 100.7. tylenol given as ordered. patient c/o feeling of having difficulty breathing. O2 sat 100%.placed on O2 @ 2lpm via NC for comfort.
[2023-03-22 20:00] VITALS: PULSE 90
--- NOTE | 2023-03-22 22:20 | NUR ---
HIT THE CALL LIGHT ,C/O PAIN SHE RATES THE PAIN 8 , AND NAUSEA , BP 118/ 68 , HR 112 , T 98.8 F , RR 20 - WILL MEDICATE , REMINDS NPO .
[2023-03-22] MEDS: ONDANSETRON 4 MG/2 ML VIAL IM/IVP PRN (22:27)
[2023-03-23] VITALS: BP 112/75; PULSE 98; RESP 18; TEMP 98.8; O2SAT 98
--- NOTE | 2023-03-23 02:00 | NUR ---
HIT THE CALL LIGHT , C/O PAIN - SHE RATES 5/10 , BP 130/ 76 , HR106 , RR 18 , O2SAT 100 % - WILL MEDICATE .
[2023-03-23] MEDS: KETOROLAC 30 MG/ML VIAL IVP PRN ×2 (02:02→23:09)
--- NOTE | 2023-03-23 04:47 | NUR ---
requesting shower at this am - will endorse .
[2023-03-23] MEDS: PIPERACILLIN/TAZOBACTAM 3.375 GM in DEXTROSE 5% 50 ML IV SCH ×4 (05:56→23:08)
[2023-03-23 06:15] LABS: BASOPHILS % (AUTO) 0.2 % (0.0-2.0); EOSINOPHILS # (AUTO) 0.1 K/uL (0-0.4); EOSINOPHILS % (AUTO) 0.9 % (0.0-4.0); HEMATOCRIT 31.7 % (36-48); HEMOGLOBIN 10.4 g/dL (12.0-16.0); LYMPHOCYTES # (AUTO) 1.2 K/uL (2.5-16.5); LYMPHOCYTES % (AUTO) 9.2 % (20.5-51.1); MEAN CORPUSCULAR HEMOGLOBIN 27 pg (27-31); MEAN CORPUSCULAR HGB CONC 33 g/dL (33-37); MEAN CORPUSCULAR VOLUME 80.8 fL (80-94); MONOCYTES # (AUTO) 0.9 K/uL (0.8-1.0); NEUTROPHILS # (AUTO) 10.4 K/uL (1.8-7.7); NEUTROPHILS % (AUTO) 82.7 % (42.2-75.2); PLATELET COUNT (AUTO) 203 K/uL (140-450); RED BLOOD CELL COUNT(AUTO) 3.92 MIL/uL (4.20-5.40); RED CELL DISTRIBUTION WIDTH 14.4 % (11.6-13.7); WHITE BLOOD COUNT (AUTO) 12.6 K/uL (4.8-10.8)
--- NOTE | 2023-03-23 06:30 | NUR ---
c/o pain , bp 118 / 65 , rr 18 , o2 sat 100 % , she rates the pain as 8 - will medicate
[2023-03-23 06:39] LABS: CARBON DIOXIDE 24.5 mmol/L (21-32); CREATININE 0.6 mg/dL (0.6-1.3); POTASSIUM 3.5 mmol/L (3.5-5.1); TOTAL BILIRUBIN 0.7 mg/dL (0.0-1.0)
[2023-03-23] MEDS: MORPHINE SULFATE 2 MG/ML SYR IVP PRN ×4 (06:39→20:47)
[2023-03-23] MEDS: NACL 0.9% 1,000 ML IV SCH ×3 (07:34→23:08)
--- NOTE | 2023-03-23 07:35 | NUR ---
ENDORSED PT FOR CONT. OF CARE .
[2023-03-23 08:00] VITALS: BP 107/65; PULSE 117; RESP 16; TEMP 97.7; O2SAT 99
[2023-03-23] MEDS: PANTOPRAZOLE 40 MG TABEC PO SCH (09:19)
[2023-03-23] MEDS: LIDOCAINE 5% 1 EA PATCH TP SCH (09:19)
--- NOTE | 2023-03-23 12:15 | NUR ---
PT ASKED WHEN SHE WAS GETTING HER SURGERY, ASKED SURGEON AND HE SAID ON SATURDAY.
--- NOTE | 2023-03-23 12:29 | NUR ---
RECEIVED REPORT FROM CLIENT CARE REPRESENTATIVE NURSE FOR CONTINUITY OF CARE. PT IS STABLE AT THIS TIME. Addendum: 03/23/23 at 1231 by Jessica Romero RN RECIVED REPORT AT 0730 THIS MORNING
[2023-03-23] MEDS: ACETAMINOPHEN 325 MG TAB PO PRN (15:38)
[2023-03-23 16:00] VITALS: BP 117/71; PULSE 117; RESP 16; TEMP 97.7; O2SAT 96
[2023-03-23] MEDS: CYCLOBENZAPRINE 10 MG TAB PO SCH (17:27)
--- NOTE | 2023-03-23 18:00 | NUR ---
BOYFRIEND CAME OUT AND ASKED IF THEY COULD BRING THE SON WHO IS 2 MONTHS OLD AND INFRMED HIM THAT HE CANNOT DUE TO HIS AGE AND INCREASED RISK FOR INFECTION.
--- NOTE | 2023-03-23 19:30 | NUR ---
HAND-OFF REPORT RECEIVED FROM ELIANA NUÑEZ FOR CONTINUITY OF CARE. ENDORSED: NPO AFTER MIDNIGHT FOR SURGERY SCHEDULED FOR SATURDAY (CHOLECYSTECTOMY). PT RECEIVED A/OX4 WITH STATED ABD PAIN THAT RADIATES TO BACK. 07/02. NOTED: POST 2 MONTHS. SIGNIFICANT OTHER AT BEDSIDE. CONTINUE CL DIET. RFA 20 GA WITH NS AT 150 ML/HR. SITE BENIGN. CONTINUE TO KEEP COMFORTABLE WITH PRN PAIN MEDS PER MD PARAMETERS AND SCHEDULED MEDS.
--- NOTE | 2023-03-23 19:44 | NUR ---
ENDORSED PT TO EMR ANALYST NURSE FOR CONTINUITY OF CARE. PT STABLE AT THIS TIME.
[2023-03-23 20:00] VITALS: BP 117/75; PULSE 99; RESP 20; TEMP 99.2; O2SAT 96; O2SAT 98
[2023-03-24] VITALS: BP 118/67; PULSE 98; RESP 16; TEMP 98; O2SAT 97
[2023-03-24] MEDS: MORPHINE SULFATE 2 MG/ML SYR IVP PRN ×6 (01:39→23:56)
--- NOTE | 2023-03-24 03:30 | NUR ---
HAND-OFF REPORT TO NURSING CO-WORKER TROY FOR CONTINUITY OF CARE. PT RESTING QUIETLY IN BED. RELINQUISHED CARE OF PT AT THIS TIME.
[2023-03-24 04:00] VITALS: BP 121/72; PULSE 90; RESP 18; TEMP 97.9; O2SAT 96
[2023-03-24] MEDS: NACL 0.9% 1,000 ML IV SCH ×4 (05:54→21:57)
--- NOTE | 2023-03-24 05:58 | NUR ---
PT COMPLAINED DRY COUGH. PRN MED FOR COUGH ADMINISTERED.
[2023-03-24 06:13] LABS: BASOPHILS % (AUTO) 0.1 % (0.0-2.0); EOSINOPHILS # (AUTO) 0.1 K/uL (0-0.4); EOSINOPHILS % (AUTO) 0.8 % (0.0-4.0); HEMATOCRIT 30.3 % (36-48); HEMOGLOBIN 10.4 g/dL (12.0-16.0); LYMPHOCYTES # (AUTO) 1.1 K/uL (2.5-16.5); MEAN CORPUSCULAR HEMOGLOBIN 27 pg (27-31); MEAN CORPUSCULAR HGB CONC 34 g/dL (33-37); MEAN CORPUSCULAR VOLUME 78.9 fL (80-94); MONOCYTES % (AUTO) 6.4 % (1.7-9.3); PLATELET COUNT (AUTO) 232 K/uL (140-450); RED BLOOD CELL COUNT(AUTO) 3.85 MIL/uL (4.20-5.40); RED CELL DISTRIBUTION WIDTH 14.3 % (11.6-13.7); WHITE BLOOD COUNT (AUTO) 15.2 K/uL (4.8-10.8)
[2023-03-24 06:49] LABS: ANION GAP 12.7 (8-16); CARBON DIOXIDE 24.6 mmol/L (21-32); CREATININE 0.6 mg/dL (0.6-1.3); POTASSIUM 3.3 mmol/L (3.5-5.1); TOTAL BILIRUBIN 0.6 mg/dL (0.0-1.0)
[2023-03-24] MEDS: PIPERACILLIN/TAZOBACTAM 3.375 GM in DEXTROSE 5% 50 ML IV SCH ×4 (06:51→23:06)
[2023-03-24 07:05] LABS: LYMPHOCYTES % (AUTO) 7.2 % (20.5-51.1); NEUTROPHILS % (AUTO) 85.5 % (42.2-75.2)
--- NOTE | 2023-03-24 07:17 | NUR ---
GAVE BEDSIDE REPORT TO CORNELIO PATTON FOR CONTINUITY OF CARE. PT IS STABLE.
--- NOTE | 2023-03-24 07:30 | NUR ---
RECEIVED REPORT FROM KEY ENTRY OPERATOR NURSE FOR CONTINUITY OF CARE. PT IS STABLE AT THIS TIME.
[2023-03-24 08:00] VITALS: BP 101/56; PULSE 110; RESP 18; TEMP 99.8; O2SAT 100
[2023-03-24] MEDS: LIDOCAINE 5% 1 EA PATCH TP SCH (08:37)
[2023-03-24] MEDS: PANTOPRAZOLE 40 MG TABEC PO SCH (08:37)
[2023-03-24] MEDS: POTASSIUM CHLORIDE 10 MEQ TABER PO PRN (08:37)
[2023-03-24] MEDS: ACETAMINOPHEN 325 MG TAB PO PRN ×3 (10:28→21:52)
--- NOTE | 2023-03-24 10:30 | NUR ---
PT CALLED NURSE STATION COMPLAINING OF PAIN AND THAT SHE FELT LIKE SHE HAD A FEVER. CHECKED PATIENTS TEMPERATURE AND SHE WAS 100.9. ADMINISTERED ICE PACKS AND GAVE PT TYLENOL TO HELP DECREASE HER TEMPERATURE. ALSO INFORMED THE PATIENT THAT SHE NEEDED TO REMOVE HER BLANKET FOR A LITTLE WHILE.
--- NOTE | 2023-03-24 15:57 | NUR ---
RODNEY INFORMED ME THAT PATIENT HAD A TEMPERATURE OF 100.2. I PROVIDED HER WITH ICE PACKS AND TYLENOL. WILL REASSESS IN AN HOUR.
[2023-03-24 16:00] VITALS: BP 111/66; PULSE 111; RESP 16; TEMP 100.2; O2SAT 99
[2023-03-24] MEDS: CYCLOBENZAPRINE 10 MG TAB PO SCH (17:09)
--- NOTE | 2023-03-24 19:26 | NUR ---
ENDORSED PT TO TECHNICAL PRODUCT MANAGER NURSE FOR CONTINUITY OF CARE. PT STABLE AT THIS TIME.
--- NOTE | 2023-03-24 19:30 | NUR ---
RECEIVED PT IN BED AWAKE, ALERT AND ORIENTED X 4, FAMILY MEMBER AT THE BEDSIDE. IV SITE LEAKING, CHANGES TO THE LEFT FA #22. DENIES PAIN AT THIS TIME. NO ACUTE RESPIRATORY DISTRESS. SKIN WARM AND DRY TO TOUCH. SAFETY PRECAUTIONS IN PLACE, CALL LIGHT PLACED WITHIN REACH, INSTRUCTED TO CALL IF ASSISTANCE IS NEEDED, PT VERBALLY ACKNOWLEDGED.
[2023-03-24 20:00] VITALS: BP 125/77; PULSE 113; RESP 18; TEMP 98.8; O2SAT 99
--- NOTE | 2023-03-24 21:52 | NUR ---
PT CALLED REQUESTING TEMP TO BE CHECKED, TEMP-101, TYLENOL GIVEN ORDERED. COOLING MEASURES STARTED.
--- NOTE | 2023-03-24 22:52 | NUR ---
TEMP RECHECKED-100.3, ONGOING COOLING MEASURES.
--- NOTE | 2023-03-24 23:56 | NUR ---
PT COMPLAINIGN OF 9/10 ABDOMINAL PAIN, MEDICATED WITH MORPHINE ORDERED. TEMP RECHECKED-98.0.
--- NOTE | 2023-03-25 00:56 | NUR ---
RE-ASSESSED FOR PAIN, PT DENIES PAIN AT THIS TIME. CALL LIGHT WITHIN REACH.
[2023-03-25] MEDS: MORPHINE SULFATE 2 MG/ML SYR IVP PRN ×4 (03:58→19:13)
[2023-03-25 04:00] VITALS: BP 124/78; PULSE 116; RESP 18; TEMP 98; O2SAT 99
[2023-03-25] MEDS: PIPERACILLIN/TAZOBACTAM 3.375 GM in DEXTROSE 5% 50 ML IV SCH ×3 (05:01→17:58)
[2023-03-25] MEDS: NACL 0.9% 1,000 ML IV SCH ×2 (05:01→13:20)
--- NOTE | 2023-03-25 06:29 | NUR ---
PATIENT IS ASLEEP. NO S/SX OF PAIN NOR DISCOMFORT. ALL NEEDS ATTENDED TO. SAFETY PRECAUTIONS IN PLACE, CALL LIGHT REMAINS WITHIN REACH.
[2023-03-25 06:54] LABS: ANION GAP 10.5 (8-16); CARBON DIOXIDE 27.7 mmol/L (21-32); CREATININE 0.6 mg/dL (0.6-1.3); POTASSIUM 3.2 mmol/L (3.5-5.1); TOTAL BILIRUBIN 0.4 mg/dL (0.0-1.0)
[2023-03-25 07:20] LABS: BASOPHILS % (AUTO) 0.2 % (0.0-2.0); EOSINOPHILS # (AUTO) 0.1 K/uL (0-0.4); HEMATOCRIT 27.3 % (36-48); HEMOGLOBIN 9.2 g/dL (12.0-16.0); LYMPHOCYTES # (AUTO) 1.2 K/uL (2.5-16.5); LYMPHOCYTES % (AUTO) 8.2 % (20.5-51.1); MEAN CORPUSCULAR HEMOGLOBIN 27 pg (27-31); MEAN CORPUSCULAR HGB CONC 34 g/dL (33-37); MEAN CORPUSCULAR VOLUME 78.6 fL (80-94); MONOCYTES # (AUTO) 1.1 K/uL (0.8-1.0); MONOCYTES % (AUTO) 7.9 % (1.7-9.3); NEUTROPHILS # (AUTO) 11.7 K/uL (1.8-7.7); NEUTROPHILS % (AUTO) 82.7 % (42.2-75.2); PLATELET COUNT (AUTO) 253 K/uL (140-450); RED BLOOD CELL COUNT(AUTO) 3.47 MIL/uL (4.20-5.40); RED CELL DISTRIBUTION WIDTH 14.3 % (11.6-13.7); WHITE BLOOD COUNT (AUTO) 14.1 K/uL (4.8-10.8)
[2023-03-25 08:00] VITALS: PULSE 107; O2SAT 97
[2023-03-25] MEDS: POTASSIUM CHLORIDE 10 MEQ TABER PO PRN (08:50)
[2023-03-25] MEDS: LIDOCAINE 5% 1 EA PATCH TP SCH (08:51)
[2023-03-25] MEDS: PANTOPRAZOLE 40 MG TABEC PO SCH (08:51)
--- NOTE | 2023-03-25 15:03 | NUR ---
03/25/23 RD INITIAL ASSESSMENT COMPLETED.PLEASE REFER TO NUTRITION ASSESSMENT UNDER CARE ACTIVITY FOR ESTIMATED NUTRITIONAL NEEDS. 1. RECOMMEND CLEAR LIQUID DIET, GRADUALLY ADVANCING TO REGULAR PT TOLERATES. 2. MONITOR PO INTAKE 3. RD TO FOLLOW-UP 5-7 DAYS, LOW RISK HILARIA KATE, RD
[2023-03-25] MEDS: CYCLOBENZAPRINE 10 MG TAB PO SCH (17:58)
[2023-03-25] MEDS ORDERED: AMOX1TAB8 PO (18:40)
[2023-03-25 20:29] VITALS: BP 118/65; PULSE 100; RESP 18; TEMP 97.1
--- NOTE | 2023-03-25 21:10 | NUR ---
NECESSARY PAPERWORKS GIVEN TO PATIENT.
--- NOTE | 2023-03-25 21:10 | NUR ---
DISCUSSED AND EDUCATED PT FOR DISCHARGE. PT VERBALIZED OF UNDERSTANDING ABOUT THE TEACHING. PT STATED SHE WILL CONTACT HER OWN PCP WITHIN ONE WEEK OF DISCHARGE FROM HOSPITAL. SPOUSE IS ON BEDSITE WHEN DISCHARGE TEACHING PERFORM. DISCHARGED PAPERWORKS COMPLETED. MEDICAL SECRETARY RECEPTIONIST TO THE LOBBY VIA WHEELCHAIR TOGETHER WITH SPOUSE. PT IS ON AWAKE, ALERT AND ABLE TO VERBALIZED NEEDS. NO SOB OR DISTRESS. PT IS ON STABLE CONDITION.
--- NOTE | 2023-03-28 11:17 | NUR ---
CALLED DR AI WHARTON'S OFFICE LOCATED AT [facility] [address] [place] [id number]. SPOKE WITH MOY WHO INFORMED ME THAT PATIENT WOULD JUST HAVE TO SHOW UP DUE TO THE OFFICE BEING A WALK IN CLINIC ONLY. CALLED PATIENT AND INFORMED PATIENT OF THE ABOVE INFORMATION WHICH SHE UNDERSTOOD.
== END 2023-03-25 21:10 | disposition home or self-care (01) | DRG 282 ==
LOC: MED 18:25 → MTU 23:59
PROVIDERS: ADMIT Student in an Organized Health Care Education/Training Program; ATTEND Student in an Organized Health Care Education/Training Program
DX: K85.10 Biliary acute pancreatitis without necrosis or infection (principal); E43 Unspecified severe protein-calorie malnutrition; E87.0 Hyperosmolality and hypernatremia; R65.10 Systemic inflammatory response syndrome (SIRS) of non-infectious origin without acute organ dysfunction; K76.0 Fatty (change of) liver, not elsewhere classified; K74.1 Hepatic sclerosis; K80.20 Calculus of gallbladder without cholecystitis without obstruction; K86.3 Pseudocyst of pancreas; Z68.41 Body mass index [BMI] 40.0-44.9, adult; E86.0 Dehydration; R74.01 Elevation of levels of liver transaminase levels; E87.6 Hypokalemia; D53.9 Nutritional anemia, unspecified; Z20.822 Contact with and (suspected) exposure to COVID-19
CPT/HCPCS: 36415; 71045; 74018; 76705; 78445; 80053; 80305; 81003; 83690; 85025; 85610; 85730; 87081; 87086; 96374; 96375; 99285; G0482; J0696; J1885; J2270; J2405; J2543; J7060; Q0092

== ENCOUNTER 2023-04-21 13:57 | Inpatient (IN) | payer OTHER ==
[~2023-04-21] VITALS: Ht 157.5 cm; Wt 83.9 kg
[~2023-04-21 13:57] MED LIST changes: +AMOX1TAB8 PO; -PNV91TAB8 PO
[2023-04-21 14:31] VITALS: BP 113/68; PULSE 79; RESP 18; TEMP 97.4; O2SAT 99
--- NOTE | 2023-04-21 14:44 | NUR ---
Note undone in EDM - 04/21/23 at 1450 by [email or web address] 22 Y/0 F PATIENT PRESENTS TO ED WITH. PT STATES SHE HAS HAD AN ACUTE ONSET OF BILATERAL UPPER QUADRANT ABD PAIN RADIATING TO THE BACK. PT STATE SSHE HAS HAD NAUSEA, NON BILIOUS VOMMITING STARTING AT 4 AM. PT DENIES ANY SIGNS OF DIARREHA. N/V/D; SKIN IS PINK/WARM/DRY; AAOX4 WITH EVEN AND STEADY GAIT; LUNGS CLEAR BL; HR EVEN AND REGULAR; PT DENIES ANY FEVER, CP, SOB, OR COUGH AT THIS TIME; PATIENT STATES PAIN OF 0/10 AT THIS TIME; VSS; PATIENT POSITIONED FOR COMFORT; CALL LIGHT WITH IN REACH; HOB ELEVATED; BEDRAILS UP X2; BED DOWN. ER MD MADE AWARE OF PT STATUS. PMHX NONE ALLERGIES
[2023-04-21] MEDS ORDERED: MORPHINE SULFATE 4 MG/ML SYR IVP ONE (14:45)
[2023-04-21] MEDS ORDERED: ONDANSETRON 4 MG/2 ML VIAL IVP ONE (14:45)
--- NOTE | 2023-04-21 14:48 | NUR ---
22 Y/0 F PATIENT PRESENTS TO ED WITH. PT STATES SHE HAS HAD AN ACUTE ONSET OF BILATERAL UPPER QUADRANT ABD PAIN RADIATING TO THE BACK. PT STATE SSHE HAS HAD NAUSEA, NON BILIOUS VOMMITING STARTING AT 4 AM. PT DENIES ANY SIGNS OF DIARREHA; SKIN IS PINK/WARM/DRY; AAOX4 WITH EVEN AND STEADY GAIT; LUNGS CLEAR BL; HR EVEN AND REGULAR; PT DENIES ANY FEVER, CP, SOB, OR COUGH AT THIS TIME; PATIENT STATES PAIN OF 7/10 AT THIS TIME; VSS; PATIENT POSITIONED FOR COMFORT; CALL LIGHT WITH IN REACH; HOB ELEVATED; BEDRAILS UP X2; BED DOWN. ER MD MADE AWARE OF PT STATUS. PMHX NONE ALLERGIES
[2023-04-21 15:08] VITALS: O2SAT 99
--- NOTE | 2023-04-21 15:21 | NUR ---
PT HAS BEEN MEDICATED PER PROVIDERS ORDERS.
[2023-04-21 15:27] LABS: BASOPHILS % (AUTO) 0.5 % (0.0-2.0); EOSINOPHILS # (AUTO) 0.2 K/uL (0-0.4); EOSINOPHILS % (AUTO) 1.8 % (0.0-4.0); LYMPHOCYTES # (AUTO) 1.1 K/uL (2.5-16.5); LYMPHOCYTES % (AUTO) 12.1 % (20.5-51.1); MEAN CORPUSCULAR HEMOGLOBIN 27 pg (27-31); MEAN CORPUSCULAR HGB CONC 33 g/dL (33-37); MEAN CORPUSCULAR VOLUME 79.4 fL (80-94); MONOCYTES # (AUTO) 0.7 K/uL (0.8-1.0); MONOCYTES % (AUTO) 7.2 % (1.7-9.3); NEUTROPHILS # (AUTO) 7.1 K/uL (1.8-7.7); NEUTROPHILS % (AUTO) 78.4 % (42.2-75.2); PLATELET COUNT (AUTO) 250 K/uL (140-450); RED BLOOD CELL COUNT(AUTO) 4.15 MIL/uL (4.20-5.40)
[2023-04-21 15:32] LABS: APPEARANCE,URINE CLOUDY (CLEAR); BILIRUBIN,URINE 1+ (NEGATIVE); BLOOD, URINE NEGATIVE (NEGATIVE); COLOR,URINE ORANGE (YELLOW); LEUKOCYTE ESTERASE ,URINE NEGATIVE (NEGATIVE); NITRITE, URINE NEGATIVE (NEGATIVE); PH,URINE 7.5 (5.0-9.0); UGLUCOSE NEGATIVE (NEGATIVE)
[2023-04-21 15:48] LABS: ALBUMIN 3.6 g/dL (3.4-5.0); ANION GAP 13.8 (8-16); CARBON DIOXIDE 25.9 mmol/L (21-32); CREATININE 0.7 mg/dL (0.6-1.3); POTASSIUM 3.7 mmol/L (3.5-5.1); TOTAL BILIRUBIN 1.1 mg/dL (0.0-1.0)
[2023-04-21] MEDS ORDERED: HYDROcodone/APAP 5/325 MG 1 TAB TAB PO PRN (17:35)
[2023-04-21] MEDS ORDERED: POTASSIUM CHLORIDE 10 MEQ TABER PO PRN (17:35)
[2023-04-21] MEDS ORDERED: MORPHINE SULFATE 2 MG/ML SYR IVP PRN (17:35)
[2023-04-21] MEDS ORDERED: ACETAMINOPHEN 325 MG TAB PO PRN (17:35)
[2023-04-21] MEDS ORDERED: MAGNESIUM OXIDE 400 MG TAB PO PRN (17:35)
--- NOTE | 2023-04-21 17:57 | NUR ---
Patient will be admitted to care of DR SAMANIEGO. Admited to MED SURG. Will go to room 125B. Belongings list completed. Report to CORNELIO.
--- NOTE | 2023-04-21 18:06 | NUR ---
PATIENT RECEIVED FROM ER VIA GURNEY BY ONE OF TRIXIE RENDON , VSS , MED SURG PATIENT , SKIN INTACT , AMBULATORY SAFETY PROACTION ON PLACE , SIDE RAILS UP X2 , BED IN LOWER POSITION , CALL LIGHT WITHIN REACH , HAS LEFT IV AC 20GAGE SALINE LOCKED , NO COMPLAIN NOW , PT STILL UNDER OBSERVE .
[2023-04-21 18:17] VITALS: PULSE 62; RESP 18; O2SAT 98
[2023-04-21 18:32] VITALS: BP 92/46; PULSE 62; RESP 18; TEMP 97; O2SAT 98
--- NOTE | 2023-04-21 19:12 | NUR ---
SHIFT REPORT GIVEN TO NIGHT NURSE , ALL HER QUESTION ANSWERED .I ADDRESS HER TO [facility] ORDER AND CONTINUE ADMISSION .
--- NOTE | 2023-04-21 19:30 | NUR ---
RECEIVED REPORT FROM AM NURSE. PATIENT IN BED RESTING, AWAKE ALERT VERBALLY RESPONSIVE. NO SOB NOTED ON ROOM AIR. CALL LIGHT WITHIN REACH. AMBULATORY. BED WHEELS LOCKED IN LOW POSITION. NO COMPLAINTS OF PAIN AT THIS TIME. AT BEDSIDE. WILL CONTINUE TO MONITOR.
[2023-04-21 20:00] VITALS: PULSE 57; RESP 17; O2SAT 99
[2023-04-21] MEDS ORDERED: cefTRIAXone 1,000 MG VIAL ONE (21:43)
--- NOTE | 2023-04-21 21:57 | NUR ---
SCHEDULED MEDICATIONS ADMINISTERED ORDERED.
[2023-04-21] MEDS: NACL 0.9% 1,000 ML IV SCH (21:59)
[2023-04-21] MEDS: metroNIDAZOLE 500 MG/NS PREMIX 100 ML IV SCH (21:59)
[2023-04-21] MEDS: ONDANSETRON 4 MG/2 ML VIAL IVP PRN (22:57)
[2023-04-22 04:00] VITALS: BP 99/51; PULSE 63; RESP 18; TEMP 97.3; O2SAT 99
[2023-04-22] MEDS: metroNIDAZOLE 500 MG/NS PREMIX 100 ML IV SCH ×2 (05:13→13:03)
[2023-04-22 05:29] LABS: BASOPHILS % (AUTO) 0.8 % (0.0-2.0); EOSINOPHILS # (AUTO) 0.1 K/uL (0-0.4); EOSINOPHILS % (AUTO) 3.3 % (0.0-4.0); HEMATOCRIT 32.4 % (36-48); HEMOGLOBIN 10.8 g/dL (12.0-16.0); LYMPHOCYTES # (AUTO) 1.3 K/uL (2.5-16.5); LYMPHOCYTES % (AUTO) 32.9 % (20.5-51.1); MEAN CORPUSCULAR HEMOGLOBIN 27 pg (27-31); MEAN CORPUSCULAR HGB CONC 33 g/dL (33-37); MEAN CORPUSCULAR VOLUME 80.7 fL (80-94); MONOCYTES # (AUTO) 0.4 K/uL (0.8-1.0); MONOCYTES % (AUTO) 9.2 % (1.7-9.3); NEUTROPHILS # (AUTO) 2.2 K/uL (1.8-7.7); NEUTROPHILS % (AUTO) 53.8 % (42.2-75.2); PLATELET COUNT (AUTO) 235 K/uL (140-450); RED BLOOD CELL COUNT(AUTO) 4.02 MIL/uL (4.20-5.40); WHITE BLOOD COUNT (AUTO) 4.1 K/uL (4.8-10.8)
[2023-04-22 05:59] LABS: ALBUMIN 3.2 g/dL (3.4-5.0); ANION GAP 8.7 (8-16); CREATININE 0.8 mg/dL (0.6-1.3); POTASSIUM 3.7 mmol/L (3.5-5.1); TOTAL BILIRUBIN 1.1 mg/dL (0.0-1.0)
[2023-04-22] MEDS: NACL 0.9% 1,000 ML IV SCH ×2 (06:05→17:18)
--- NOTE | 2023-04-22 07:13 | NUR ---
receive the patient from the shift production associate rn in rm 125B aox4 admitting diagnosis of acute cholecystitis . for antibiotic therapy . will continue to monitor
--- NOTE | 2023-04-22 07:33 | NUR ---
BEDSIDE REPORT GIVEN TO AM NURSE FOR CONTINUITY OF CARE. PATIENT STABLE. ALL NEEDS ATTENDED AND MET .
[2023-04-22 08:00] VITALS: BP 101/56; PULSE 64; RESP 18; TEMP 97.1; O2SAT 99
[2023-04-22] MEDS ORDERED: NACL 0.9% 500 ML IV SCH (08:05)
[2023-04-22 08:07] VITALS: PULSE 59; RESP 19; O2SAT 99
[2023-04-22] MEDS: ONDANSETRON 4 MG/2 ML VIAL IVP PRN (08:50)
--- NOTE | 2023-04-22 09:13 | NUR ---
PATIENT HAS BEEN SCREENED AND CATEGORIZED HIGH NUTRITION RISK. PATIENT WILL BE SEEN WITHIN 1-2 DAYS OF ADMISSION. 04/22/23-04/23/23 REVIEWED BY MARGARET RESENDEZ RD
--- NOTE | 2023-04-22 12:13 | NUR ---
Finishing Range Supervisor CONCRETE BUILDINGS ASSEMBLER met with pt. at bedside. Pt. was agreeable to this interview. Pt. was AOx4, answers were appropriate. Pt. stated she has been in a lot of pain and is hoping to have surgery as she has been very uncomfortable. Pt. stated she and her 3 month old baby are fine. CONCRETE BUILDINGS ASSEMBLER asked about . Pt. stated she is able to get baby latched on. Pt. denied any drinking and stated she does not have an issue with alcohol. Pt. declined any resources CONCRETE BUILDINGS ASSEMBLER had. CONCRETE BUILDINGS ASSEMBLER will remain available a needed.
--- NOTE | 2023-04-22 12:30 | NUR ---
Md echavarria made rounds . read the ultrasound of the abdomen and pelvis . discharge the patient from his standpoint . recommended clear liquid diet . will inform Md Tierney primary physician
--- NOTE | 2023-04-22 13:25 | NUR ---
[place] PLANNING A 22 YEAR OLD FEMALE PATIENT ADMITTED IN MED- SURG FOR RUQ ABDOMINAL PAIN.PATIENT HAS PMHX OF GALLSTONE AND PANCREATITIS AND WAS RECENTLY HOSPITALIZED AT [facility] IN [place] DUE TO ACUTE PANCREATITIS AND GALLSTONES.GEN SURGERY RECOMMENDED AN OUTPATIENT SURGERY AND PAIN CONTROL PATIENT WISHED TO BE DISCHARGED.GB US SHOWS FATTY LIVER AND CHOLELITHIASIS.GEN SURGERY CONSULT WITH REQUESTED.PAUL TO FOLLOW. Addendum: 04/22/23 at 1619 by VAN GRAY CM ADDENDUM PER PATIENT CAN HAVE SURGERY ON AN OUTPATIENT BASIS.PATIENT WAS PUT ON A CLEAR LIQUID DIET.SURGERY EVAL REQUEST FAXED TO [facility].PAUL TO FOLLOW.
--- NOTE | 2023-04-22 13:49 | NUR ---
04/22/23 RD INITIAL ASSESSMENT COMPLETED PLEASE REFER TO NUTRITION ASSESSMENT UNDER CARE ACTIVITY FOR ESTIMATED NUTRITIONAL NEEDS. 1. CONTINUE NPO DIET TOLERATED AND ADVANCE TO REGULAR DIET ONCE MEDICALLY APPROPRIATE. 2. RD WILL CONTINUE TO MONITOR PO INTAKE, WEIGHT, GI ISSUES, AND NUTRITION RELATED LAB VALUES. 3. RD TO FOLLOW-UP 3-5 DAYS, MODERATE RISK REVIEWED BY MARGARET RESENDEZ RD
[2023-04-22 16:00] VITALS: BP 104/55; PULSE 57; RESP 18; TEMP 97.8; O2SAT 99
[2023-04-22] MEDS ORDERED: IBUP-2213 PO (17:53)
[2023-04-22] MEDS ORDERED: ACET-9527 PO (17:53)
[2023-04-22 17:59] VITALS: BP 124/85; PULSE 68; RESP 20; TEMP 97.1
--- NOTE | 2023-04-22 18:53 | NUR ---
will endorse to ophthalmology technician rn for continuity of care . for outpatient consult with Md Suarez for laparoscopic cholecystectomy surgery
--- NOTE | 2023-04-22 19:20 | NUR ---
RECEIVED PATIENT IN BED RESTING WITH IVF NS RUNNING AT 80 ML/HR. NO DISTRESS NOTED ON ROOM AIR. NO COMPLAINTS OF PAIN. AT BEDSIDE. CALL LIGHT ON EASY REACH. AMBULATORY.
--- NOTE | 2023-04-22 20:48 | NUR ---
DISCHARGED PATIENT TO HOME ACCOMPANIED BY IN STABLE CONDITION. PATIENT REFUSED TO USED THE WHEELCHAIR INSISTED TO WALK IN GOING OUT. ALL PAPER WORKS SIGNED BY PATIENT.
[2023-04-23] MEDS ORDERED: ONDANSETRON 4 MG/2 ML VIAL ONE (19:42)
[2023-04-23] MEDS ORDERED: KETOROLAC 15 MG/ML VIAL ONE (20:03)
[2023-04-23] MEDS ORDERED: MORPHINE SULFATE 2 MG/ML SYR ONE (22:17)
[2023-04-24] MEDS ORDERED: ONDANSETRON 4 MG/2 ML VIAL ONE (01:15)
[2023-04-24] MEDS ORDERED: MORPHINE SULFATE 2 MG/ML SYR ONE (01:15)
[2023-04-24] MEDS ORDERED: KETOROLAC 15 MG/ML VIAL ONE (04:22)
== END 2023-04-22 20:45 | disposition home or self-care (01) ==
LOC: MED 13:57 → MMU 17:35
PROVIDERS: ADMIT Student in an Organized Health Care Education/Training Program; ATTEND Student in an Organized Health Care Education/Training Program
DX: K80.10 Calculus of gallbladder with chronic cholecystitis without obstruction (principal); E66.9 Obesity, unspecified; Z68.33 Body mass index [BMI] 33.0-33.9, adult
CPT/HCPCS: 36415; 76705; 80053; 81003; 83690; 85025; 87081; 96374; 96375; 99285; J0696; J1644; J1885; J2270; J2405; J3490; J7060; Q0092

== ENCOUNTER 2023-04-23 06:20 | Inpatient (IN) | payer OTHER ==
[~2023-04-23] VITALS: Ht 149.9 cm; Wt 58.5 kg
[~2023-04-23 06:20] MED LIST changes: +ACET-9527 PO; -AMOX1TAB8 PO; +IBUP-2213 PO
[2023-04-23 06:26] VITALS: BP 116/43; PULSE 96; RESP 24; TEMP 96.8; O2SAT 99
--- NOTE | 2023-04-23 06:26 | NUR ---
Pt arrived with IV on left AC. Per pt, was in [facility] at 330 am but AMAd and took IV with her due to wait times. JULIO aware.
--- NOTE | 2023-04-23 06:39 | NUR ---
PT TAKEN TO BED 3
--- NOTE | 2023-04-23 06:43 | NUR ---
Dr. Barr examining patient.
[2023-04-23] MEDS ORDERED: FAMOTIDINE 20 MG/2 ML VIAL IVP ONE (06:50)
[2023-04-23] MEDS ORDERED: NACL 0.9% 1,000 ML IV ONE (06:50)
[2023-04-23] MEDS ORDERED: KETOROLAC 30 MG/ML VIAL IVP ONE (06:50)
[2023-04-23] MEDS ORDERED: ONDANSETRON 4 MG/2 ML VIAL IVP ONE ×2 (06:50→07:50)
[2023-04-23 07:02] LABS: BASOPHILS % (AUTO) 0.2 % (0.0-2.0); EOSINOPHILS % (AUTO) 0.2 % (0.0-4.0); HEMATOCRIT 35.9 % (36-48); HEMOGLOBIN 11.7 g/dL (12.0-16.0); LYMPHOCYTES # (AUTO) 0.8 K/uL (2.5-16.5); LYMPHOCYTES % (AUTO) 5.7 % (20.5-51.1); MEAN CORPUSCULAR HEMOGLOBIN 26 pg (27-31); MEAN CORPUSCULAR HGB CONC 33 g/dL (33-37); MEAN CORPUSCULAR VOLUME 80.7 fL (80-94); MONOCYTES # (AUTO) 0.7 K/uL (0.8-1.0); MONOCYTES % (AUTO) 4.9 % (1.7-9.3); NEUTROPHILS # (AUTO) 12.6 K/uL (1.8-7.7); PLATELET COUNT (AUTO) 202 K/uL (140-450); RED BLOOD CELL COUNT(AUTO) 4.45 MIL/uL (4.20-5.40); RED CELL DISTRIBUTION WIDTH 15.1 % (11.6-13.7); WHITE BLOOD COUNT (AUTO) 14.1 K/uL (4.8-10.8)
[2023-04-23 07:28] LABS: ALBUMIN 3.6 g/dL (3.4-5.0); ANION GAP 14.6 (8-16); CARBON DIOXIDE 25.1 mmol/L (21-32); CREATININE 0.9 mg/dL (0.6-1.3); POTASSIUM 3.7 mmol/L (3.5-5.1); TOTAL BILIRUBIN 1.4 mg/dL (0.0-1.0)
--- NOTE | 2023-04-23 07:46 | NUR ---
PATIENT POSITIONED FOR COMFORT; HOB ELEVATED; BEDRAILS UP X2; CALL LIGHT WITH IN REACH; BED DOWN. PT NAUSEATED AND HAVING DRY HEAVES. PT CONTINUES TO HAVE 10/10 PAIN. ER MD MADE AWARE OF PT PAIN STATUS. MD ASSESSED PT AT BS.
[2023-04-23] MEDS ORDERED: MORPHINE SULFATE 4 MG/ML SYR IVP ONE ×2 (07:50→09:55)
--- NOTE | 2023-04-23 08:06 | NUR ---
US COMPLETED. CHARGE NURSE TO MEDICATE PT.
--- NOTE | 2023-04-23 09:00 | NUR ---
ULTRASOUND AT BS PERFORMING PROCEDURE AT BS.
[2023-04-23] MEDS ORDERED: METOCLOPRAMIDE 10 MG/2 ML INJ VIAL IVP ONE (09:55)
[2023-04-23] MEDS ORDERED: POTASSIUM CHLORIDE 10 MEQ TABER PO PRN (10:10)
[2023-04-23] MEDS ORDERED: KCL 20 MEQ IN 100 mL PREMIX 200 ML IV PRN (10:10)
[2023-04-23] MEDS ORDERED: MAG SULF 2000 MG/WATER PREMIX 50 ML IV PRN (10:10)
[2023-04-23] MEDS ORDERED: ACETAMINOPHEN 325 MG TAB PO PRN (10:10)
[2023-04-23] MEDS ORDERED: HYDROcodone/APAP 5/325 MG 1 TAB TAB PO PRN (10:10)
[2023-04-23] MEDS ORDERED: MAGNESIUM OXIDE 400 MG TAB PO PRN (10:10)
--- NOTE | 2023-04-23 10:13 | NUR ---
PT MEDICATED ORDERED.
[2023-04-23] MEDS: LACTATED RINGERS 1,000 ML IV SCH ×2 (10:26→15:24)
--- NOTE | 2023-04-23 10:56 | NUR ---
PT SLEEPING WITHOUT DISTRESS. PT TO BE ADMITTED. ONCE ADMITTED PT TO BE TRANSFERRED FOR A MRCP.
--- NOTE | 2023-04-23 11:04 | NUR ---
admitted the patient from emergency room jessica Mccormick in rm 125B [id number] admitting diagnosis of gallstone , pancreatitis . still on NPO for further evaluation . for pain mgt also . will continue to monitor
--- NOTE | 2023-04-23 11:07 | NUR ---
PT FILLING OUT 3 PAGE MRI FORM REQUESTED. ATTEMPTED TO CALL REPORT TO [facility] FOR MED/SURG ADMIT. NURSE CURRENTLY ON THE PHONE AND TO CALL BACK.
--- NOTE | 2023-04-23 11:18 | NUR ---
PT WILL BE SCHEDULE TOMORROW FOR MRCP DUE TO DO NO TIME SLOT AVAILABLE AT THIS TIME. WILL INFORM MD OF NEW SCHEDULE.
--- NOTE | 2023-04-23 11:23 | NUR ---
Pt report given to NURSE FREEMAN. PT TAKEN TO MED/SURG UNIT. TRANSPORTED BY JIM WITH IVF LR INFUSING. PT ESCORTED TO UNIT BY OCTAVIO GRIMES. PT LEFT IN STABLE CONDITION. Transfer of care at this time.
--- NOTE | 2023-04-23 12:09 | NUR ---
[place] PLANNING A 22 YEAR OLD PATIENT ADMITTED TO MED -SURG FOR ABDOMINAL PAIN WITH NAUSEA AND VOMITING AND GENERALIZED WEAKNESS.PATIENT CALLED 911 AND WAS TAKEN TO [facility] BUT LEFT BECAUSE THE WAIT WAS TOO LONG.WAS ADMITTED HERE 03/19/2023 THROUGH 03/26/23 FOR PANCREATITIS AND ON 04/21/23 THROUGH 04/22/2023 BUT WAS DISCHARGED YESTERDAY WITH MOTRIN AND NORCO BUT DID NOT TAKE MEDS.PHARMACY DID NOT HAVE THE MEDICATION.WAS SEEN BY SURGERY BUT RECOMMENDED OUTPATIENT FOLLOW UP AND CHOLECYSTECTOMY. MRCP WAS ORDERED.[facility] AUTH TO BE OBTAINED.[facility] RADIOLOGY AT [place] CAN'T DO THE PROCEDURE TODAY. INFORMED.WILL RESCHEDULE IN AM.CM TO FOLLOW. Addendum: 04/23/23 at 9776 by DOMINGO GUEVARA ARRANGED WAIT AND RETURN TRANSPORTATION FOR PATIENT TO GO HAVE MRCP AT [facility] FOR A 1200 APPOINTMENT WITH [facility] . CHARGE NURSE SHAD AND NURSE SOLANO AWARE OF THE ABOVE INFORMATION. Addendum: 04/23/23 at 1620 by VAN GRAY LATE ENTRY AUTH FOR MRCP-[id number] AUTH FOR [id number] Addendum: 04/25/23 at 1206 by DOMINGO GUEVARA CM RECEIVED ORDER FOR PATIENT TO GET OUT PATIENT REPEAT ERCP AND A PANCREATIC DUCT STENT REMOVAL IN 1 WEEK FAXED ALL ORDERS TO [facility]. Addendum: 04/25/23 at 1650 by VAN GRAY CM DC PLANNING 04/24 S/P ERCP WITH SPHINCTERECTOMY,STONE EXTRACTION AND STENT PLACEMENT BY GI().04/25- S/P LAP CHOLECYSTECTOMY BY .PATIENT IS AWAKE, ALERT AND ORIENTED X 4.VS STABLE.DISABILITY INFORMATION PROVIDED BY [facility] LANE.CM TO FOLLOW. Addendum: 04/26/23 at 1358 by DOMINGO GUEVARA CM CALLED DR CHIRAG BAH'S OFFICE LOCATED AT [address] [facility] [address] [facility] [address]. WAS ABLE TO SCHEDULE A FOLLOW UP APPOINTMENT FOR 05/02/[address] DAISHA GOODWIN'S OFFICE LOCATED AT [address] [facility] [address] [facility] [address]. WAS ABLE TO SCHEDULE AN APPOINTMENT FOR 06/04/2023 AT 1515. MEDICAL STAFF INFORMED ME THAT PATIENT MUST SEE PCP FIRST IN ORDER TO GET A REFERRAL TO GI. CALLED DR LAINEY MCMILLAN'S OFFICE LOCATED AT [address] [facility] [address] [facility] [address]. SPOKE WITH Jagjit DE JESUS WHILE TRYING TO SCHEDULE A FOLLOW UP APPOINTMENT AND SHE INFORMED ME SINCE THE PATIENT IS NEW SHE WOULD HAVE TO FIRST GO IN TO THE OFFICE TO FILL OUT PAPERWORK BEFORE THEY ARE ABLE TO SCHEDULE ANY TYPE OF APPOINTMENT. WENT TO BEDSIDE WITH APPOINTMENT SLIPS FOR ALL 3 DOCTOR'S OFFICE AND EXPLAINED WHAT EACH APPOINTMENT WAS FOR AND HOW IMPORTANT IT IS TO FOLLOW UP WITH PCP.
[2023-04-23] MEDS: MORPHINE SULFATE 2 MG/ML SYR IVP PRN ×3 (14:03→22:27)
--- NOTE | 2023-04-23 14:27 | NUR ---
PATIENT HAS BEEN SCREENED AND CATEGORIZED LOW NUTRITION RISK. PATIENT WILL BE SEEN WITHIN 7 DAYS OF ADMISSION. 04/30/23 REVIEWED BY MARGARET RESENDEZ RD
[2023-04-23 14:43] VITALS: PULSE 68; RESP 20; O2SAT 99
[2023-04-23] MEDS: ONDANSETRON 4 MG/2 ML VIAL IVP PRN ×2 (15:20→19:51)
[2023-04-23 16:00] VITALS: BP 141/92; PULSE 72; RESP 20; TEMP 98.7; O2SAT 98
--- NOTE | 2023-04-23 17:02 | NUR ---
MRCP checklist was done with the patient . submitted to Kaye supervisor case loading for MRCP to faxed to [facility] for tomorrow's procedure
--- NOTE | 2023-04-23 20:00 | NUR ---
c/o abdl .pain and nausea and vomiting , bp 133/78 , pr 87 , rr 18 , o2 sat 98 % - will medicate . will cont. to monitor
[2023-04-23] MEDS: KETOROLAC 15 MG/ML VIAL IM PRN (20:08)
--- NOTE | 2023-04-23 21:08 | NUR ---
re assess the pt , no nausea and vomiting noted at this time , but the pt said the pain is just lessen from 6 to 4 pain score , will cont. to monitor , will re assess the pain , call light within reach .
--- NOTE | 2023-04-23 22:27 | NUR ---
re assess the pain - pt said the pain is intensify from 4 to 9 pain score . bp 143/82 , pr 89 , rr20 , o2 ast 98 5 - will medicate .
--- NOTE | 2023-04-23 23:27 | NUR ---
re asses the pain - per pain the pain score is still 9/10 - she said seems the morphine i gave is does not works . soft abd. - will refer to doctor instruction dean - for closely watch , maintain npo , call light within reach .
--- NOTE | 2023-04-24 00:49 | NUR ---
DR Tiffanie JONES ORDERED GIVE ANOTHER MORPHINE 2MG TIV NOW STAT DOSE , THEN IF THE SEVERE PAIN DOES NOT RELIEVE CHANGE THE MORPHINE TO 4MG TIV Q 4HR - WILL CARRY OUT .
[2023-04-24] MEDS ORDERED: MORPHINE SULFATE 2 MG/ML SYR IVP STA (00:51)
--- NOTE | 2023-04-24 01:08 | NUR ---
another dose of morphine 2mg tiv as stat dose given as ordered , will cont. to monitor , call light within reach .
[2023-04-24] MEDS: ONDANSETRON 4 MG/2 ML VIAL IVP PRN ×3 (01:17→20:11)
--- NOTE | 2023-04-24 01:17 | NUR ---
c/o pain , vomiting , bp 133/65 , pr 84 , rr 20 , o2 sat 97 5 - will medicate as ordered. will cont. to monitor , call light within reach .
[2023-04-24] MEDS: LACTATED RINGERS 1,000 ML IV SCH ×3 (01:24→12:50)
--- NOTE | 2023-04-24 02:08 | NUR ---
per pt the pain is 0 / 10 at this time , will cont. to monitor .
--- NOTE | 2023-04-24 02:30 | NUR ---
sleeping , but easily arousable to sound . will cont. to monitor , call light within reach .
[2023-04-24] MEDS: MORPHINE SULFATE 2 MG/ML SYR IVP PRN ×2 (03:19→07:37)
[2023-04-24 04:00] VITALS: BP 133/65; PULSE 84; RESP 20; TEMP 98.8; O2SAT 98
--- NOTE | 2023-04-24 04:19 | NUR ---
re asses the pain - per pt the pain scale down to 6/10, pt still requesting pain med makes the pain lower than to moderate to the point she can 't much bearable the pain - will medicate , will cont. to monitor , call light within reach .
[2023-04-24] MEDS: KETOROLAC 15 MG/ML VIAL IM PRN ×2 (04:26→11:06)
--- NOTE | 2023-04-24 05:00 | NUR ---
SLEEPING , WILL CONT . TO MONITOR , CALL LIGHT WITHIN REACH .
--- NOTE | 2023-04-24 05:19 | NUR ---
PER PT PAIN IS ALMOST GONE , WILL CONT. TO MONITOR
[2023-04-24 05:48] LABS: BASOPHILS % (AUTO) 0.1 % (0.0-2.0); EOSINOPHILS % (AUTO) 0.1 % (0.0-4.0); HEMATOCRIT 32.3 % (36-48); HEMOGLOBIN 10.7 g/dL (12.0-16.0); LYMPHOCYTES # (AUTO) 0.7 K/uL (2.5-16.5); LYMPHOCYTES % (AUTO) 6.7 % (20.5-51.1); MEAN CORPUSCULAR HEMOGLOBIN 27 pg (27-31); MEAN CORPUSCULAR HGB CONC 33 g/dL (33-37); MEAN CORPUSCULAR VOLUME 80.5 fL (80-94); MONOCYTES # (AUTO) 0.6 K/uL (0.8-1.0); MONOCYTES % (AUTO) 5.9 % (1.7-9.3); NEUTROPHILS # (AUTO) 9.5 K/uL (1.8-7.7); NEUTROPHILS % (AUTO) 87.2 % (42.2-75.2); PLATELET COUNT (AUTO) 191 K/uL (140-450); RED BLOOD CELL COUNT(AUTO) 4.02 MIL/uL (4.20-5.40); RED CELL DISTRIBUTION WIDTH 15.6 % (11.6-13.7); WHITE BLOOD COUNT (AUTO) 10.9 K/uL (4.8-10.8)
--- NOTE | 2023-04-24 06:00 | NUR ---
SLEEPING , EASLIY AROUSABLE TO SOUNDS AND TOUCH . WILL CONT. TO MONITOR .
[2023-04-24 06:17] LABS: ALBUMIN 3.1 g/dL (3.4-5.0); ANION GAP 13.8 (8-16); CARBON DIOXIDE 26.2 mmol/L (21-32); CREATININE 0.8 mg/dL (0.6-1.3); MAGNESIUM 1.5 mg/dL (1.8-2.4)
--- NOTE | 2023-04-24 07:40 | NUR ---
ENDORSED FOR CONT. OF CARE . ENDORSED TO ABDI ABOUT DR. JONES'S ORDER ABOUT MORPHINE 4MG TIV CORNELIO PATTON VERBALIZED UNDERSTANDING .
[2023-04-24 08:00] VITALS: BP 103/68; PULSE 74; RESP 16; TEMP 97.9; O2SAT 98
[2023-04-24] MEDS ORDERED: KETOROLAC 15 MG/ML VIAL IM/IVP PRN (11:20)
--- NOTE | 2023-04-24 12:38 | NUR ---
Coring Machine Operator DIRECTOR OF FINANCIAL AID completed a discharge planning assessment.
--- NOTE | 2023-04-24 14:00 | NUR ---
PT WAS TAKEN TO ERCP
[2023-04-24] MEDS ORDERED: KETOROLAC 30 MG/ML VIAL IM/IVP PRN (14:05)
[2023-04-24] MEDS ORDERED: PROPOFOL 200 MG/20 ML VIAL IV ONE ×2 (15:00→16:27)
[2023-04-24] MEDS ORDERED: KETOROLAC 30 MG/ML VIAL ONE ×2 (15:00→16:28)
[2023-04-24] MEDS ORDERED: ONDANSETRON 4 MG/2 ML VIAL ONE ×2 (15:00→16:27)
[2023-04-24] MEDS ORDERED: SUCCINYLCHOLINE CHLORIDE 200 MG/10 ML VIAL IVP ONE ×2 (15:00→16:27)
[2023-04-24] MEDS ORDERED: SEVOFLURANE 250 ML BTL INH ONE (15:00)
[2023-04-24] MEDS ORDERED: fentaNYL citrate 0.05 MG/ML - 50mL vial IV ONE (15:00)
[2023-04-24] MEDS ORDERED: fentaNYL citrate 0.05 MG/ML VIAL ONE (15:41)
[2023-04-24 16:00] VITALS: BP 128/80; PULSE 83; RESP 16; TEMP 98.2; O2SAT 98
[2023-04-24] MEDS ORDERED: METOCLOPRAMIDE 10 MG/2 ML INJ VIAL IVP PRN (17:05)
[2023-04-24] MEDS ORDERED: HYDROmorphone 1 MG/ML AMP IVP PRN (17:05)
[2023-04-24] MEDS ORDERED: hydrALAZINE 20 MG/ML VIAL IVP PRN (17:05)
[2023-04-24] MEDS ORDERED: diphenhydrAMINE 50 MG/ML VIAL IVP PRN (17:05)
[2023-04-24] MEDS ORDERED: LABETALOL 20 MG/4 ML VIAL IVP PRN (17:05)
[2023-04-24] MEDS ORDERED: LACTATED RINGERS 1,000 ML IV SCH (17:05)
--- NOTE | 2023-04-24 17:50 | NUR ---
PT RETURNED TO THE FLOOR FROM HER ERCP. WAS INFORMED THAT PATIENT DOES NOT HAVE AN IV AND THAT SH IS NAUSEOUS AND COMPLAINING OF PAIN.
--- NOTE | 2023-04-24 18:00 | NUR ---
INFORMED CHARGE NURSE THAT PT HAS HAD MANY TRIES TO PLACE NEW IV THAT WERE UNSUCCESSFUL. SHE SAID SHE WOULD TRY.
--- NOTE | 2023-04-24 18:10 | NUR ---
ASKED PT IF SHE WOULD LIKE HER IM TORADOL FOR NOW FOR THE PAIN, SHE SAID YES AND I GRABBED MEDS AND ADMINISTERED THEM.
--- NOTE | 2023-04-24 18:23 | NUR ---
CALLED ER TO SEE IF THEY CAN PLACE AN IV IN MY PATIENT, THEY STATED THEY WOULD ASK AND HUNG UP ON ME.
--- NOTE | 2023-04-24 18:56 | NUR ---
RECEIVED REPORT FROM CLOTH MERCERIZER BACK TENDER NURSE FOR CONTINUITY OF CARE. PT STABLE AT THIS TIME.
--- NOTE | 2023-04-24 19:22 | NUR ---
ENDORSED PT TO FINANCIAL SERVICES ASSISTANT NURSE FOR CONTINUITY OF CARE. PT STABLE AT THIS TIME.
[2023-04-24 20:00] VITALS: PULSE 85; RESP 18; O2SAT 98
--- NOTE | 2023-04-24 20:00 | NUR ---
C/O NAUSEA AND VOMITING - WILL MEDICATE , WILL CONT. TO MONITOR
[2023-04-24 20:57] VITALS: BP 122/68; PULSE 79; RESP 20; TEMP 98.7; O2SAT 98
--- NOTE | 2023-04-24 20:57 | NUR ---
C/O PAIN BP 122/68 , SC 79 , RR 20 , O2 SAT 98 % , WILL MEDICATE , SHE RATES THE PAIN 8 / 10 , WILL CONT. TO MONITOR
[2023-04-24] MEDS: MORPHINE SULFATE 4 MG/ML SYR IVP PRN (21:01)
--- NOTE | 2023-04-25 | NUR ---
REMINDS PT NPO , PT VERBALIZES UNDERSTANDING , WILL CONT. TO MONITOR
[2023-04-25] MEDS: LACTATED RINGERS 1,000 ML IV SCH ×5 (02:10→22:10)
[2023-04-25 04:00] VITALS: BP 130/70; PULSE 79; RESP 18; TEMP 98.4; O2SAT 98
[2023-04-25] MEDS: ONDANSETRON 4 MG/2 ML VIAL IVP PRN (04:53)
[2023-04-25] MEDS: MORPHINE SULFATE 4 MG/ML SYR IVP PRN ×2 (04:54→20:13)
[2023-04-25 05:13] LABS: BASOPHILS % (AUTO) 0.3 % (0.0-2.0); EOSINOPHILS # (AUTO) 0.2 K/uL (0-0.4); HEMATOCRIT 29.9 % (36-48); HEMOGLOBIN 9.9 g/dL (12.0-16.0); LYMPHOCYTES % (AUTO) 11.6 % (20.5-51.1); MEAN CORPUSCULAR HEMOGLOBIN 27 pg (27-31); MEAN CORPUSCULAR HGB CONC 33 g/dL (33-37); MONOCYTES # (AUTO) 0.6 K/uL (0.8-1.0); MONOCYTES % (AUTO) 6.4 % (1.7-9.3); NEUTROPHILS # (AUTO) 6.9 K/uL (1.8-7.7); NEUTROPHILS % (AUTO) 79.7 % (42.2-75.2); PLATELET COUNT (AUTO) 175 K/uL (140-450); RED BLOOD CELL COUNT(AUTO) 3.69 MIL/uL (4.20-5.40); RED CELL DISTRIBUTION WIDTH 15.6 % (11.6-13.7); WHITE BLOOD COUNT (AUTO) 8.7 K/uL (4.8-10.8)
[2023-04-25 05:31] LABS: ALBUMIN 2.7 g/dL (3.4-5.0); ANION GAP 11.6 (8-16); CARBON DIOXIDE 26.7 mmol/L (21-32); CREATININE 0.7 mg/dL (0.6-1.3); MAGNESIUM 1.5 mg/dL (1.8-2.4); POTASSIUM 3.3 mmol/L (3.5-5.1)
--- NOTE | 2023-04-25 06:00 | NUR ---
AWAKE , NO COMPLAIN MADE .
--- NOTE | 2023-04-25 07:15 | NUR ---
RECEIVED REPORT FROM DEPUTY INSURANCE COMMISSIONER NURSE FOR CONTINUITY OF CARE. PT STABLE AT THIS TIME.
--- NOTE | 2023-04-25 07:30 | NUR ---
PT WAS TAKEN TO SURGERY.
--- NOTE | 2023-04-25 07:38 | NUR ---
DR. CHIRAG BAH TALKED THE PT OVER THE PHONE .
[2023-04-25] MEDS ORDERED: ROCURONIUM 50 MG/5 ML VIAL IV ONE (07:45)
[2023-04-25] MEDS ORDERED: SUCCINYLCHOLINE CHLORIDE 200 MG/10 ML VIAL IVP ONE (07:45)
[2023-04-25] MEDS ORDERED: KETOROLAC 30 MG/ML VIAL ONE (07:45)
[2023-04-25] MEDS ORDERED: PROPOFOL 200 MG/20 ML VIAL IV ONE (07:45)
[2023-04-25] MEDS ORDERED: METOCLOPRAMIDE 10 MG/2 ML INJ VIAL ONE (07:46)
[2023-04-25] MEDS ORDERED: DEXAMETHASONE 4 MG/ML VIAL ONE (07:46)
[2023-04-25] MEDS ORDERED: DESFLURANE 240 ML BTL INH ONE (07:46)
[2023-04-25] MEDS ORDERED: BUPIVACAINE-MPF 0.25% 30 ML VIAL INJ ONE (07:47)
[2023-04-25] MEDS ORDERED: ceFAZolin 2,000 MG VIAL ONE (07:47)
[2023-04-25] MEDS ORDERED: LIDOCAINE/EPI MPF 1%1:200000 30 ML VIAL INJ ONE (07:47)
[2023-04-25 08:00] VITALS: BP 119/67; PULSE 82; RESP 16; TEMP 97.7; O2SAT 98
[2023-04-25] MEDS ORDERED: HYDROcodone/APAP 5/325 MG 1 TAB TAB PO PRN (08:00)
[2023-04-25] MEDS ORDERED: fentaNYL citrate 0.05 MG/ML VIAL ONE (08:03)
[2023-04-25] MEDS ORDERED: ONDANSETRON 4 MG/2 ML VIAL IVP PRN (08:15)
[2023-04-25] MEDS ORDERED: HYDROmorphone PFS 2 MG/ML SYR ONE ×2 (08:15→09:14)
[2023-04-25] MEDS ORDERED: LABETALOL 20 MG/4 ML VIAL IVP ONE (08:30)
[2023-04-25] MEDS ORDERED: SUGAMMADEX SODIUM 200 MG/2 ML VIAL IV ONE (08:32)
[2023-04-25] MEDS: HYDROmorphone 1 MG/ML AMP IVP PRN ×4 (09:00→16:01)
--- NOTE | 2023-04-25 09:30 | NUR ---
PT RETURNED FROM SURGERY. REPORT RECEIVED FROM THE OR NURSE THAT PT HAD 1.5MG OF DILAUDID, A DOSE OF ANCEF 2G TO PREVENT INFECTION, AND 10ML OF BLOOD LOSS. PT HAS NO COMPLAINT OF PAIN AT THIS TIME. MONITORING CONTINUED AT THIS TIME.
[2023-04-25 16:00] VITALS: BP 106/52; PULSE 79; RESP 18; TEMP 97.3; O2SAT 95
--- NOTE | 2023-04-25 19:20 | NUR ---
ENDORSED PT TO PROGRAMMING DEVELOPMENT PROJECT MANAGER NURSE FOR CONTINUITY OF CARE. PT STABLE AT THIS TIME.
--- NOTE | 2023-04-25 19:25 | NUR ---
RECEIVED REPORT FORM DAY SHIFT RN FOR CONTINUITY OF CARE. PT IS RESTING IN BED. NOT IN ANY DISTRESS. BED AT THE LOWEST POSITION. HEAD OF THE BED RAISED. POC DISCUSSED. WILL CONTINUE TO MONITOR THE PT.
[2023-04-25 20:00] VITALS: BP 106/67; PULSE 67; RESP 16; TEMP 97.9; O2SAT 97
[2023-04-26] MEDS: HYDROmorphone 1 MG/ML AMP IVP PRN ×3 (00:52→15:08)
[2023-04-26] MEDS: LACTATED RINGERS 1,000 ML IV SCH ×2 (00:52→11:39)
--- NOTE | 2023-04-26 00:52 | NUR ---
PT COMPLAINED OF ABD PAIN 10/10. DILAUDID WAS GIVEN. NO OTHER COMPLAINS.
[2023-04-26 04:00] VITALS: BP 113/71; PULSE 71; RESP 18; TEMP 96.9; O2SAT 97
[2023-04-26] MEDS: MORPHINE SULFATE 4 MG/ML SYR IVP PRN (04:47)
--- NOTE | 2023-04-26 04:47 | NUR ---
PT COMPLAINED OF ABD PAIN 10/10. MORPHINE WAS GIVEN. NO OTHER COMPLAINS.
[2023-04-26 05:13] LABS: BASOPHILS % (AUTO) 0.1 % (0.0-2.0); EOSINOPHILS % (AUTO) 0.2 % (0.0-4.0); HEMATOCRIT 28.3 % (36-48); HEMOGLOBIN 9.3 g/dL (12.0-16.0); LYMPHOCYTES % (AUTO) 8.4 % (20.5-51.1); MEAN CORPUSCULAR HEMOGLOBIN 27 pg (27-31); MEAN CORPUSCULAR HGB CONC 33 g/dL (33-37); MEAN CORPUSCULAR VOLUME 81.6 fL (80-94); MONOCYTES # (AUTO) 0.7 K/uL (0.8-1.0); MONOCYTES % (AUTO) 6.2 % (1.7-9.3); NEUTROPHILS # (AUTO) 9.8 K/uL (1.8-7.7); NEUTROPHILS % (AUTO) 85.1 % (42.2-75.2); PLATELET COUNT (AUTO) 201 K/uL (140-450); RED BLOOD CELL COUNT(AUTO) 3.47 MIL/uL (4.20-5.40); RED CELL DISTRIBUTION WIDTH 16.1 % (11.6-13.7); WHITE BLOOD COUNT (AUTO) 11.5 K/uL (4.8-10.8)
[2023-04-26 05:56] LABS: ALBUMIN 2.6 g/dL (3.4-5.0); ANION GAP 10.7 (8-16); CARBON DIOXIDE 28.3 mmol/L (21-32); CREATININE 0.6 mg/dL (0.6-1.3); MAGNESIUM 1.8 mg/dL (1.8-2.4); TOTAL BILIRUBIN 0.5 mg/dL (0.0-1.0)
--- NOTE | 2023-04-26 07:11 | NUR ---
ENDORSED PT TO DAY SHIFT RN FOR CONTINUITY OF CARE. PT IS STABLE.
--- NOTE | 2023-04-26 07:48 | NUR ---
PATIENT RECEIVED AT BED SIDE , ON BED REST , SLEEPING , AROUSAL TO VOICE , A/OX4 ,NO SOB , NO COMPLAIN AT THIS TIME , SAFETY ON PLACE , SIDE RAILS UP X2 , BED IN LOWER POSITION , CALL LIGHT WITHIN REACH ON CARDIAC DIET , SKIN INTACT , AMBULATORY , CONTINENT X2 , PATIENT STILL UNDER OBSERVE
[2023-04-26 10:01] VITALS: PULSE 64; RESP 18; O2SAT 97
[2023-04-26 11:15] VITALS: BP 112/66; PULSE 64; RESP 18; TEMP 98.2; O2SAT 97
--- NOTE | 2023-04-26 14:11 | NUR ---
PATIENT STABLE , LIN COMPLAIN AT THIS TIME , STILL UNDER OBSERVE .
--- NOTE | 2023-04-26 16:04 | NUR ---
PATIENT ON BED REST , A/OX4 , SAFETY PROACTION ON PLACE , NO COMPLAIN AT THIS TIME , ON IV FLUID RL 150CC/H ON CARDIAC DIET , AMBULATORY , STILL UNDER OBSERVE .
[2023-04-26 16:09] VITALS: BP 115/65; PULSE 68; RESP 18; TEMP 98.6
[2023-04-26] MEDS ORDERED: ACET-9525 PO (16:30)
[2023-04-26 16:41] VITALS: BP 109/65; PULSE 68; RESP 18; TEMP 96.8; O2SAT 97
--- NOTE | 2023-04-26 17:09 | NUR ---
PATIENT HAS DISCHARGED ORDER , PATIENT A/OX4 , VSS , NO COMPLAIN , DISCHARGE PACKET EXPLAIN FOR PATIENT PATIENT VERBALIZED UNDERSTANDING OF GIVEN , ALL HER DOCUMENT SIGNED AND PLACED ON CHART MEDICATION RECONCILED , IV AND ARM BAND REMOVED , ASSISTED TO LABBY AND PICKED UP BY HER ADDRESS HER TO FLOW WITH PRIMARY DR Moreno
== END 2023-04-26 17:25 | disposition home or self-care (01) | DRG 263 ==
LOC: MED 06:20 → MMU 10:13
PROVIDERS: ADMIT Internal Medicine; ATTEND Internal Medicine
PROC: 0F798ZZ Dilation of Common Bile Duct, Via Natural or Artificial Opening Endoscopic (ICD-10-PCS; 2023-04-24)
PROC: 0F7D8DZ Dilation of Pancreatic Duct with Intraluminal Device, Via Natural or Artificial Opening Endoscopic (ICD-10-PCS; 2023-04-24)
PROC: 0FCC8ZZ Extirpation of Matter from Ampulla of Vater, Via Natural or Artificial Opening Endoscopic (ICD-10-PCS; principal; 2023-04-24 14:30)
PROC: 0DNU4ZZ Release Omentum, Percutaneous Endoscopic Approach (ICD-10-PCS; 2023-04-25)
PROC: 0FT44ZZ Resection of Gallbladder, Percutaneous Endoscopic Approach (ICD-10-PCS; 2023-04-25)
DX: K85.10 Biliary acute pancreatitis without necrosis or infection (principal); R65.10 Systemic inflammatory response syndrome (SIRS) of non-infectious origin without acute organ dysfunction; K80.50 Calculus of bile duct without cholangitis or cholecystitis without obstruction; K80.20 Calculus of gallbladder without cholecystitis without obstruction; K29.70 Gastritis, unspecified, without bleeding; E66.9 Obesity, unspecified; Z68.26 Body mass index [BMI] 26.0-26.9, adult
CPT/HCPCS: 36415; 74018; 76705; 80053; 82150; 82247; 82248; 82374; 83690; 83735; 85025; 87081; 88304; 96361; 96374; 96375; 96376; 99285; C1769; J0330; J1100; J1170; J1644; J1885; J2001; J2270; J2405; J2704; J2765; J3010; J3475; J3490; J7030; J7120; Q0092; Q9967

== ENCOUNTER 2023-08-06 06:39 | Day surgery (SDC) | payer OTHER ==
[~2023-08-06] VITALS: Ht 149.9 cm; Wt 90.7 kg
[~2023-08-06 06:39] MED LIST changes: +ACET-9525 PO; -ACET-9527 PO
[2023-08-06] MEDS ORDERED: PROPOFOL 200 MG/20 ML VIAL IV ONE ×2 (07:17→08:26)
[2023-08-06] MEDS ORDERED: MIDAZOLAM 2 MG/2 ML VIAL ONE (07:18)
[2023-08-06] MEDS ORDERED: fentaNYL citrate 0.05 MG/ML VIAL ONE (07:18)
[2023-08-06] MEDS ORDERED: SUGAMMADEX SODIUM 200 MG/2 ML VIAL IV ONE (07:20)
[2023-08-06] MEDS ORDERED: ONDANSETRON 4 MG/2 ML VIAL ONE (07:20)
[2023-08-06] MEDS ORDERED: DEXAMETHASONE 4 MG/ML VIAL ONE (07:20)
[2023-08-06 07:44] LABS: BASOPHILS % (AUTO) 0.4 % (0.0-2.0); EOSINOPHILS # (AUTO) 0.1 K/uL (0-0.4); EOSINOPHILS % (AUTO) 1.2 % (0.0-4.0); HEMATOCRIT 35.9 % (36-48); LYMPHOCYTES # (AUTO) 1.9 K/uL (2.5-16.5); LYMPHOCYTES % (AUTO) 21.8 % (20.5-51.1); MEAN CORPUSCULAR HEMOGLOBIN 26 pg (27-31); MEAN CORPUSCULAR HGB CONC 34 g/dL (33-37); MEAN CORPUSCULAR VOLUME 78.7 fL (80-94); MONOCYTES # (AUTO) 0.5 K/uL (0.8-1.0); MONOCYTES % (AUTO) 5.9 % (1.7-9.3); NEUTROPHILS # (AUTO) 6.2 K/uL (1.8-7.7); NEUTROPHILS % (AUTO) 70.7 % (42.2-75.2); PLATELET COUNT (AUTO) 276 K/uL (140-450); RED BLOOD CELL COUNT(AUTO) 4.56 MIL/uL (4.20-5.40); RED CELL DISTRIBUTION WIDTH 13.7 % (11.6-13.7); WHITE BLOOD COUNT (AUTO) 8.8 K/uL (4.8-10.8)
[2023-08-06 08:20] LABS: ALBUMIN 3.7 g/dL (3.4-5.0); ANION GAP 9.1 (8-16); CALCIUM 8.8 mg/dL (8.5-10.1); CARBON DIOXIDE 28.8 mmol/L (21-32); CREATININE 0.7 mg/dL (0.6-1.3); POTASSIUM 3.9 mmol/L (3.5-5.1); TOTAL BILIRUBIN 0.6 mg/dL (0.0-1.0); TOTAL PROTEIN, SERUM 7.7 g/dL (6.4-8.2)
== END 2023-08-06 10:15 | disposition home or self-care (01) ==
LOC: MDS 06:39 → MMU 06:47 → MDS 10:15
PROVIDERS: ATTEND Internal Medicine
DX: K80.50 Calculus of bile duct without cholangitis or cholecystitis without obstruction (principal); K80.20 Calculus of gallbladder without cholecystitis without obstruction; Z90.49 Acquired absence of other specified parts of digestive tract; Z79.899 Other long term (current) drug therapy
CPT/HCPCS: 36415; 43260; 74328; 80053; 85025; C1769; J1100; J2250; J2405; J2704; J3010; 74330